=== PATIENT | female | born 1940 | race Caucasian/White ===

== ENCOUNTER 2016-06-06 09:13 | Outpatient (CLI) | payer MEDICARE, BC ==
[2016-06-06] MEDS ORDERED: BARIUM SULFATE 176 GM BOTTLE PO ONE (10:10)
== END 2016-06-06 09:14 | disposition home or self-care (01) ==
DX: K44.9 Diaphragmatic hernia without obstruction or gangrene (principal); K21.9 Gastro-esophageal reflux disease without esophagitis
CPT/HCPCS: 74247; A9270

== ENCOUNTER 2016-10-15 10:39 | Outpatient (CLI) | payer MEDICARE, BC | END 2016-10-15 10:40 | disposition home or self-care (01) | LOC: DI 10:39 | PROVIDERS: ATTEND Physician Assistant Medical | DX: Z12.31 Encounter for screening mammogram for malignant neoplasm of breast (principal) ==

== ENCOUNTER 2016-10-27 14:16 | Outpatient (CLI) | payer MEDICARE, BC ==
--- NOTE | 2016-10-27 18:08 | Mammography Report ---
DIGITAL DIAGNOSTIC BILATERAL MAMMOGRAM: 10/27/2016 CLINICAL INDICATION: Left breast pain at previous surgical site, history of left breast cancer statu s post lumpectomy and radiation therapy. COMPARISON: 09/2015, 09/2014, 08/2013, 04/2012, 04/2011, 04/2010, 10/2009, 03/2009. TECHNIQUE: Routine CC and MLO projections were obtained of the breasts. The breasts again demonstrate scattered fibroglandular densities bilaterally. Postoperative and post -treatment changes in the left breast, and post-biopsy changes in the right breast are stable. Coars e and punctate, typically benign calcifications are present. No suspicious masses, clustered microca lcifications, or regions of architectural distortion are identified. IMPRESSION: BENIGN FINDINGS. RECOMMENDATION: ROUTINE ANNUAL SCREENING UNLESS OTHERWISE CLINICALLY INDICATED. BIRADS CATEGORY: 2, BENIGN FINDINGS. STANDARD QUALIFYING STATEMENTS 1. This examination was reviewed with the aid of Computed-Aided Detection (CAD). 2. A negative or benign imaging report should not delay biopsy if clinically suspicious findings are present. Consider surgical consultation if warranted. More than 5% of cancers are not identified b y imaging. 3. Dense breasts may obscure an underlying neoplasm. JOB #: [id number] EXT JOB #:[id number]
== END 2016-10-27 14:17 | disposition home or self-care (01) ==
LOC: DI 14:16
PROVIDERS: ATTEND Physician Assistant Medical
DX: N64.4 Mastodynia (principal); Z85.3 Personal history of malignant neoplasm of breast
CPT/HCPCS: 77066

== ENCOUNTER 2016-11-17 13:33 | Outpatient (CLI) | payer MEDICARE, BC ==
--- NOTE | 2016-11-18 09:54 | DEXA Report ---
DEXA SCAN: 11/17/2016 CLINICAL INDICATION: Osteopenia. TECHNIQUE: Dual energy x-ray absorptiometry (DXA) was performed on a [employer] system. Regions measured are the AP spine, femoral neck, and, if needed, forearm. COMPARISON: None. In accordance with the International Society for Clinical Densitometry (ISCD) guidelines, data from previous exams may be reanalyzed using current recommendations and techniques. This is done to allow a more accurate basis for comparison with the current study. FINDINGS: The data for the lumbar spine is as follows: REGION BMD (g/cm/cm) T-SCORE Z-SCORE L1 1.047 -0.7 0.3 L2 1.228 0.2 1.2 L3 1.453 2.1 3.1 L4 1.182 -0.1 0.8 TOTAL 1.232 0.4 1.4 NOTE: All evaluable vertebrae are used for classification. The data for the hip is as follows: REGION BMD (g/cm/cm) T-SCORE Z-SCORE Neck 0.884 -1.1 0.3 TOTAL 0.831 -1.4 -0.2 NOTE: The femoral neck or total proximal femur, whichever is lowest, is used for classification. IMPRESSION: THE WHO CLASSIFICATION BASED ON THE INTERNATIONAL REFERENCE STANDARD IS OSTEOPENIA. THE FRACTURE RISK IS INCREASED. RECOMMENDATION: Patients with diagnosis of osteoporosis or osteopenia should have regular bone mineral density assessment. For those eligible for Medicare, routine testing is allowed once every 2 years. Testing frequency can be increased for patients who have rapidly progressing disease or for those who are receiving medical therapy to restore bone mass. COMMENT: World Health Organization (WHO) definitions for osteoporosis and osteopenia: NORMAL BMD: T-score at -1.0 or higher, fracture risk is low. OSTEOPENIA BMD: T-score between -1.0 and -2.5, fracture risk is increased. OSTEOPOROSIS BMD: T-score at -2.5 or lower, fracture risk high. National Osteoporosis Foundation recommends: 1. Obtain adequate dietary calcium (at least 1200 mg per day) and vitamin D (400 -800 international units per day). 2. Participate, as appropriate, in regular weightbearing and muscle- strengthening exercise. 3. Avoid tobacco use and reduce alcohol and caffeine intake. 4. For more detailed information see the website at www.NOF.org. MTDD
== END 2016-11-17 13:34 | disposition home or self-care (01) ==
LOC: DI 13:33
PROVIDERS: ATTEND Family Medicine
DX: M85.88 Other specified disorders of bone density and structure, other site (principal)
CPT/HCPCS: 77080

== ENCOUNTER 2017-07-26 08:00 | Outpatient (CLI) | payer MEDICARE, BC ==
[2017-07-26 13:00] LABS: BASOPHILS # (AUTO) 0.1 10^3/uL (0.0-0.1); BASOPHILS % (AUTO) 1.5 %; EOSINOPHILS # (AUTO) 0.1 10^3/uL (0.0-0.7); EOSINOPHILS % (AUTO) 1.9 %; HGB - HEMOGLOBIN 13.8 g/dL (12.0-16.0); LYMPHOCYTES # (AUTO) 1.5 10^3/uL (1.5-3.5); LYMPHOCYTES % (AUTO) 31.3 %; MEAN CORPUSCULAR HEMOGLOBIN 30.1 pg (27.0-31.0); MEAN CORPUSCULAR HGB CONC 33.2 g/dL (32.0-36.0); MEAN CORPUSCULAR VOLUME 90.5 fL (81.0-99.0); MEAN PLATELET VOLUME 9.9 fL (7.9-10.8); MONOCYTES # (AUTO) 0.3 10^3/uL (0.0-1.0); NEUTROPHILS # (AUTO) 2.8 10^3/uL (1.5-6.6); NEUTROPHILS % (AUTO) 58.3 %; PLT - PLATELET COUNT 199 10^3/uL (130-450); RED CELL DISTRIBUTION WIDTH 13.3 % (12.0-15.0); WHITE BLOOD COUNT 4.8 x10^3/uL (4.8-10.8)
[2017-07-26 13:10] LABS: ALBUMIN 3.7 g/dL (3.2-5.5); ALBUMIN/GLOBULIN RATIO 1.1 (1.0-2.2); ALKALINE PHOSPHATASE 51 IU/L (42-121); ALT ALANINE AMINOTRANSFERASE 16 IU/L (10-60); AST ASPARTATE AMINOTRANSFERASE 21 IU/L (10-42); BUN - BLOOD UREA NITROGEN 17 mg/dL (6-20); CALCIUM 8.8 mg/dL (8.5-10.3); CARBON DIOXIDE - CO2 29 mmol/L (21-32); CHLORIDE 103 mmol/L (101-111); CHOL/HDL RATIO 2.4 (<4.4); CHOLESTEROL 168 mg/dL; CREATININE 0.7 mg/dL (0.4-1.0); GFR - MDRD 81 (>89); GLUCOSE 95 mg/dL (70-100); HDL CHOLESTEROL 69 mg/dL; LDL CHOLESTEROL,CALCULATED 86 mg/dL; LDL/HDL RATIO 1.2 (<4.4); SODIUM 138 mmol/L (135-145); VLDL CHOLESTEROL 13 mg/dL
== END 2017-07-26 08:01 ==
LOC: LAB.WCP 08:00
PROVIDERS: ATTEND Family Medicine
DX: I10 Essential (primary) hypertension (principal)
CPT/HCPCS: 36415; 80053; 80061; 83721; 84443; 85025

== ENCOUNTER 2017-08-24 16:33 | Emergency (ER) | payer MEDICARE, BC ==
[2017-08-24] MEDS ORDERED: ACETAMINOPHEN 325 MG TABLET PO STA (17:09)
--- NOTE | 2017-08-24 17:11 | ED Physician Documentation ---
PD HPI UPPER EXT INJURY - Stated complaint Stated Complaint: GLF/ R SHOULDER/NECK/ HEAD PX - Chief complaint Chief Complaint: Ext Problem - History obtained from History obtained from: Patient, Family - History of Present Illness Location: Other (She had a trip and fall about an hour ago at home landing on a shredder, she injured the right side of her face and head and also the right shoulder and ribs. There is no loss of consciousness. No vomiting. 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 HEENT: Cataracts - Present Medications Home Medications: Ambulatory Orders Medication Instructions Recorded Confirmed Atenolol [Tenormin] 25 mg PO DAILY 11/01/12 11/04/14 Calcitonin,[place],Synthetic 3.7 ml NS DAILY 11/01/12 11/04/14 [Calcitonin-[place]] Calcium Citrate/Vitamin D3 1 each PO BID 11/01/12 11/04/14 [Citracal + D Maximum Caplet] Cholecalciferol (Vitamin D3) 2,000 unit PO DAILY 11/01/12 11/04/14 [Vitamin D] Latanoprost 0.005% Ophth Drops 1 drops OPTH QPM 11/01/12 11/04/14 [Xalatan] Lovastatin [Mevacor] 20 mg PO DAILY 11/01/12 11/04/14 Acetaminophen 325 mg PO Q6H PRN 10/22/13 11/04/14 Aspirin [Aspir 81] 81 mg PO DAILY 10/22/13 11/04/14 Famotidine 20 mg PO BID 10/22/13 11/04/14 - Allergies Allergies/Adverse Reactions: Allergies Allergy/AdvReac Type Severity Reaction Status Date / Time hydrocodone [Hydrocodone] Allergy Severe Rash Verified 08/24/17 16:57 Tetanus Vaccines and Toxoid Allergy Severe Edema Verified 08/24/17 16:57 [Tetanus Vaccines & Toxoid] - Social History Does the pt smoke?: No Smoking Status: Never smoker PD ED PE NORMAL - Vitals Vital signs reviewed: Yes - General General: Alert and oriented X 3, No acute distress - HEENT HEENT: PERRL, EOMI, Other (She is tender over the right upper mandible with TMJ clicking, not sure the acuity of that. Full range of motion of the jaw though.) - Neck Neck: Supple, no meningeal sign, No bony TTP - Cardiac Cardiac: RRR, No murmur - Respiratory Respiratory: No respiratory distress, Clear bilaterally, Other (She is tender over the right upper ribs in the mid axillary line and to the right upper humerus but good range of motion of the shoulder.) - Abdomen Abdomen: Non tender - Back Back: No spinal TTP - Neuro Neuro: Alert and oriented X 3, culture manager 2-12 intact, Normal speech Eye Opening: Spontaneous Motor: Obeys Commands Verbal: Oriented GCS Score: 15 Results - Vitals Vitals: Vital Signs - 24 hr 08/24/17 08/24/17 16:54 18:21 Temperature 36.2 C L 36.5 C Heart Rate 67 81 Respiratory 14 18 Rate Blood Pressure 149/88 H 148/78 H O2 Saturation 99 96 Oxygen O2 Source Room air - Rads (name of study) XR R humerus and ribs Radiology: EMP read contemporaneously (NAD) Ct Face/head Radiology: EMP read contemporaneously (NAD) PD MEDICAL DECISION MAKING - ED course ED course: The patient and family were counseled as to the diagnosis and need for follow- up. I counseled the patient with regard to signs and symptoms that would necessitate an urgent reevaluation in the emergency department. They understand they are welcome to return at any time if worse or if not improving as expected. This document was made in part using voice recognition software. While efforts are made to proofread this documents, sound alike and grammatical errors may occur. - Sepsis Event Vital Signs: Vital Signs - 24 hr 08/24/17 08/24/17 16:54 18:21 Temperature 36.2 C L 36.5 C Heart Rate 67 81 Respiratory 14 18 Rate Blood Pressure 149/88 H 148/78 H O2 Saturation 99 96 Oxygen O2 Source Room air Departure - Departure Disposition: 01 Home, Self Care Clinical Impression: Head injury Qualifiers: Encounter type: initial encounter Qualified Code(s): S09.90XA - Unspecified injury of head, initial encounter Facial contusion Qualifiers: Encounter type: initial encounter Qualified Code(s): S00.83XA - Contusion of other part of head, initial encounter Contusion of right shoulder Qualifiers: Encounter type: initial encounter Qualified Code(s): S40.011A - Contusion of right shoulder, initial encounter Chest wall contusion Qualifiers: Encounter type: initial encounter Laterality: right Qualified Code(s): S20.211A - Contusion of right front wall of thorax, initial encounter Condition: Good Record reviewed to determine appropriate education?: Yes Instructions: ED Contusion Chest Wall Comments: Tylenol as needed for pain, return if worse or new symptoms develop. Follow-up with your doctor next week for persistent symptoms. Your blood pressure was elevated today on check into the emergency department. This does not mean that you have hypertension, it is a common phenomenon to come to the emergency department and have elevated blood pressure. I recommend that you see your primary care physician within the week to have it rechecked when you are feeling better. Discharge Date/Time: 08/24/17 18:22
--- NOTE | 2017-08-24 17:47 | CT Report ---
Procedure Date: 08/24/2017 Accession Number: [id number] / [id number] Procedure: CT - Head W/O CPT Code: FULL RESULT: EXAM: CT HEAD EXAM DATE: 08/24/2017 05:30 PM. CLINICAL HISTORY: Fall, head/face/shoulder and rib inj. COMPARISON: None. TECHNIQUE: Multiaxial CT images were obtained from the foramen magnum to the vertex. Reformats: Coronal. IV contrast: None. In accordance with CT protocol optimization, one or more of the following dose reduction techniques were utilized for this exam: automated exposure control, adjustment of mA and/or KV based on patient size, or use of iterative reconstructive technique. FINDINGS: Parenchyma: Patchy periventricular and subcortical low-density white matter changes. No evidence of acute infarction or hemorrhage. Extraaxial Spaces: Normal for age. No subdural or epidural collections identified. Ventricles: Normal in size and position. Sinuses and Orbits: Imaged paranasal sinuses, orbits, and mastoids show no significant abnormality. Bones: No evidence of fracture or calvarial defect. Other: None. IMPRESSION: No acute intracranial abnormality. Low-density white matter changes compatible with chronic small vessel ischemic disease. RADIA
--- NOTE | 2017-08-24 17:53 | CT Report ---
Procedure Date: 08/24/2017 Accession Number: [id number] / [id number] Procedure: CT - Facial Bones W/O CPT Code: FULL RESULT: EXAM: CT MAXILLOFACIAL WITHOUT CONTRAST EXAM DATE: 08/24/2017 05:30 PM. CLINICAL HISTORY: Fall, head/face/shoulder and rib inj. COMPARISONS: None. TECHNIQUE: Thin-section axial images were acquired of the face without contrast. Post-processing: Coronal and sagittal reformats. Other: None. In accordance with CT protocol optimization, one or more of the following dose reduction techniques were utilized for this exam: automated exposure control, adjustment of mA and/or KV based on patient size, or use of iterative reconstructive technique. FINDINGS: Soft Tissue: The infratemporal fossa and parapharyngeal spaces are unremarkable. Orbits: Symmetric and unremarkable. Bones: No fracture or bone lesion. Temporomandibular Joints: The temporomandibular joints are symmetric and normally located. Sinuses: Minimal left maxillary sinus mucosal thickening. Other: None. IMPRESSION: No facial bone fracture. RADIA
--- NOTE | 2017-08-24 18:01 | XRAY Report ---
Procedure Date: 08/24/2017 Accession Number: [id number] / [id number] Procedure: XR - Humerus RT CPT Code: FULL RESULT: EXAM: RIGHT HUMERUS RADIOGRAPHY EXAM DATE: 08/24/2017 05:49 PM. CLINICAL HISTORY: Fall, pain COMPARISON: None. TECHNIQUE: 2 views. FINDINGS: Bones: No acute fracture or focal osseous destruction. Joints: Mild degenerative changes at the shoulder and elbow. No dislocation identified. Soft Tissues: No radiopaque foreign body. IMPRESSION: No acute fracture or dislocation identified. RADIA
--- NOTE | 2017-08-24 18:03 | XRAY Report ---
Procedure Date: 08/24/2017 Accession Number: [id number] / [id number] Procedure: XR - Ribs w/PA Chest RT CPT Code: FULL RESULT: EXAM: RIGHT RIB RADIOGRAPHY EXAM DATE: 08/24/2017 05:49 PM. CLINICAL HISTORY: Fall, head/face/shoulder and rib inj. COMPARISON: Chest x-ray 07/14/2008. TECHNIQUE: 1 view of the chest and 2 views of the ribs. FINDINGS: Bones: No definite acute right-sided rib fracture is visualized. Lungs: No focal lung consolidation. Mild elevation of the right hemidiaphragm again noted. Mildly low lung volumes. No large effusion. No pneumothorax. Mediastinum: Cardiac silhouette size appears stable. Mild vascular calcification. Other: Surgical clips again noted overlying the axillary regions and left chest wall. IMPRESSION: No definite acute right-sided rib fracture is visualized. RADIA
[2017-08-24 18:22] VITALS: BP 148/78
== END 2017-08-24 18:22 | disposition home or self-care (01) ==
LOC: ED 16:33
DX: S09.90XA Unspecified injury of head, initial encounter (principal); S00.83XA Contusion of other part of head, initial encounter; S20.211A Contusion of right front wall of thorax, initial encounter; S40.011A Contusion of right shoulder, initial encounter; W01.198A Fall on same level from slipping, tripping and stumbling with subsequent striking against other object, initial encounter; Y92.009 Unspecified place in unspecified non-institutional (private) residence as the place of occurrence of the external cause; I10 Essential (primary) hypertension; K21.9 Gastro-esophageal reflux disease without esophagitis; M19.90 Unspecified osteoarthritis, unspecified site; Z79.82 Long term (current) use of aspirin
CPT/HCPCS: 70450; 70486; 71101; 73060; 99283; A9270

== ENCOUNTER 2017-09-11 16:53 | Outpatient (CLI) | payer MEDICARE, BC ==
--- NOTE | 2017-09-11 17:49 | XRAY Report ---
Procedure Date: 09/11/2017 Accession Number: [id number] / [id number] Procedure: XR - Thoracic Spine 3 View CPT Code: FULL RESULT: EXAM: THORACIC SPINE RADIOGRAPHY EXAM DATE: 09/11/2017 05:31 PM. CLINICAL HISTORY: Pain after a fall today. COMPARISON: Two-view chest 07/14/2008. TECHNIQUE: 3 views. FINDINGS: Alignment: Marked dextroscoliosis of the lumbar spine. Mild kyphosis of the thoracic spine. Bones: Old very slight wedging of the vertebral bodies throughout the thoracic spine. No acute trabecular cortical disruption. Disks: Multilevel mild degenerative changes. Soft Tissues: Remote left breast surgery. Visualized lungs are clear. Heart is of normal caliber. IMPRESSION: No acute bony abnormality. RADIA
--- NOTE | 2017-09-11 17:51 | XRAY Report ---
Procedure Date: 09/11/2017 Accession Number: [id number] / [id number] Procedure: XR - Lumbar Spine 2 View CPT Code: FULL RESULT: EXAM: LUMBOSACRAL SPINE RADIOGRAPHY EXAM DATE: 09/11/2017 05:31 PM. CLINICAL HISTORY: Pain after fall today. COMPARISONS: 08/24/2010. TECHNIQUE: 3 views. FINDINGS: Alignment: 20-degree dextroscoliosis centered at L2. 8 mm degenerative anterior subluxation L4 on L5. Bones: Five [id number]-dbeplmb lumbar vertebral bodies are present. No fractures or bone lesions. Disks: Marked degenerative disk disease L5-S1. Facets: Multilevel degenerative changes, greatest at L4-L5 and L5-S1. Sacroiliac Joints: Unremarkable. Soft Tissues: Stable 5.6 cm calcification right upper quadrant. IMPRESSION: No acute bony abnormality. RADIA
--- NOTE | 2017-09-11 18:13 | CT Report ---
Procedure Date: 09/11/2017 Accession Number: [id number] / [id number] Procedure: CT - Head W/O CPT Code: FULL RESULT: EXAM: CT HEAD EXAM DATE: 09/11/2017 05:42 PM. CLINICAL HISTORY: Fall backwards at 2 PM today. Posterior head and neck trauma. Pain. COMPARISON: 08/24/2017. TECHNIQUE: Multiaxial CT images were obtained from the foramen magnum to the vertex. Reformats: Coronal. IV contrast: None. In accordance with CT protocol optimization, one or more of the following dose reduction techniques were utilized for this exam: automated exposure control, adjustment of mA and/or KV based on patient size, or use of iterative reconstructive technique. FINDINGS: Parenchyma: No intraparenchymal hemorrhage. No evidence of mass, midline shift, or CT findings of acute infarction. Fajardo-white differentiation is distinct. Diffuse chronic microangiopathic white matter changes are evident. Extraaxial Spaces: Normal for age. No subdural or epidural collections identified. Ventricles: The ventricles and cortical sulci are enlarged, consistent with age-related tissue loss. Sinuses and orbits: Imaged paranasal sinuses, orbits, and mastoids show no significant abnormality. Bones: No evidence of fracture or calvarial defect. Other: None. IMPRESSION: Generalized age-related cortical atrophic changes without evidence of acute intracranial abnormality. RADIA
--- NOTE | 2017-09-11 18:36 | CT Report ---
Procedure Date: 09/11/2017 Accession Number: [id number] / [id number] Procedure: CT - Cervical Spine W/O CPT Code: FULL RESULT: EXAM: CT CERVICAL SPINE WITHOUT CONTRAST DATE: 09/11/2017 05:58 PM. HISTORY: Pain post injury after a fall. COMPARISONS: None. TECHNIQUE: Thin-section axial images were acquired of the cervical spine without contrast. Post-processing: Coronal and sagittal reformats. Other: None. In accordance with CT protocol optimization, one or more of the following dose reduction techniques were utilized for this exam: automated exposure control, adjustment of mA and/or KV based on patient size, or use of iterative reconstructive technique. FINDINGS: Alignment: 7-8 degrees have shallow broad-based rightward convex asymmetric cervical curvature. Slight degenerative C7 on T1 anterolisthesis. Bones: No acute fracture. Vertebral body heights are maintained. Interspace Levels/Facets: C1-C2: Mild to moderate chronic hypertrophic degenerative changes around the odontoid process. Mild bilateral facet arthropathy. C2-C3: Mild facet arthropathy. C3-C4: Minimal degenerative disk disease. Moderate facet arthropathy. C4-C5: Mild degenerative disk disease. Moderate left facet arthropathy. Shallow midline posterior disk protrusion with osteophyte. Minimal to mild bilateral bony foraminal stenosis. Minimal to mild central stenosis. C5-C6: Minimal to mild degenerative disk disease. Mild facet arthropathy. The osseous contours of the central canal and right foramen are maintained. Mild to moderate left bony foraminal stenosis. C6-C7: Moderate degenerative disk disease. Anterior marginal spurring. Posterior marginal spurring and bilateral uncinate process spurring and mild facet arthropathy. Mild to moderate stenosis of the neural foramina bilaterally. The osseous contours of the central canal are maintained. C7-T1: Mild right and moderate left facet arthropathy. Intact disk space. No significant stenosis. Musculature: No acute abnormality or significant asymmetry. No focal prevertebral soft tissue thickening. Other: Multiple punctate calcifications are present where there is unusual soft tissue fullness at the tongue base protruding posteriorly into the vallecula. This soft tissue prominence measures nearly 1 cm AP in the midline. IMPRESSION: 1. No evidence for acute fracture or dislocation. 2. Chronic-appearing multilevel degenerative cervical spinal spondylosis, most prominent at C4-C5 through C6-C7. 3. Nonspecific masslike soft tissue fullness at the tongue base with intermixed punctate calcifications which suggest a recurrent or chronic inflammatory process, soft tissue fullness may represent lingual tonsil hypertrophy. Tumor is a statistically less likely differential consideration. Findings were discussed by telephone with the ordering provider Loly Daniels MD at 6:32 PM 09/11/2017. RADIA
== END 2017-09-11 16:54 | disposition home or self-care (01) ==
LOC: DI 16:53
PROVIDERS: ATTEND Family Medicine
DX: S09.90XA Unspecified injury of head, initial encounter (principal); M47.892 Other spondylosis, cervical region; M50.31 Other cervical disc degeneration, high cervical region; K14.9 Disease of tongue, unspecified; M48.02 Spinal stenosis, cervical region; M51.34 Other intervertebral disc degeneration, thoracic region; R29.6 Repeated falls
CPT/HCPCS: 70450; 72072; 72100; 72125

== ENCOUNTER 2017-11-28 13:06 | Outpatient (CLI) | payer MEDICARE, BC ==
--- NOTE | 2017-11-29 09:23 | Mammography Report ---
Reason: SCREENING MAMMO Procedure Date: 11/28/2017 Accession Number: [id number] / [id number] Procedure: [facility] - Screening Mammo Dig Bilat CPT Code: FULL RESULT: EXAM: Screening Mammo Dig Bilat DATE: 11/28/2017 1:51 PM CLINICAL HISTORY: 77-year-old female with personal history of left breast cancer status post biopsy, lumpectomy and radiation therapy. TECHNIQUE: Bilateral CC, left laterally exaggerated CC, bilateral MLO views and a right CV view were obtained. COMPARISON: None FINDINGS: The breasts demonstrate scattered fibroglandular densities bilaterally. A biopsy marker is seen in the right breast. Post treatment changes and postsurgical changes are seen in the left breast. Visualization of the left breast in both the CC and MLO projection are inadequate and further views need to be obtained for sufficient visualization of breast tissue. No suspicious masses, clustered microcalcifications, or regions of architectural distortion are identified. IMPRESSION: Incomplete examination RECOMMENDATION: Additional evaluation as above. BIRADS CATEGORY 0: Incomplete examination STANDARD QUALIFYING STATEMENTS: 1. This examination was reviewed without the aid of Computer-Aided Detection (CAD). 2. A negative or benign imaging report should not delay biopsy if clinically suspicious findings are present. Consider surgical consultation if warrented. More than 5% of cancers are not identified by imaging. 3. Dense breasts may obscure an underlying neoplasm.
== END 2017-11-28 13:07 | disposition home or self-care (01) ==
LOC: DI 13:06
PROVIDERS: ATTEND Family Medicine
DX: Z12.31 Encounter for screening mammogram for malignant neoplasm of breast (principal); R92.2 Inconclusive mammogram; Z85.3 Personal history of malignant neoplasm of breast
CPT/HCPCS: 77067

== ENCOUNTER 2017-12-18 09:13 | Outpatient (CLI) | payer MEDICARE, BC ==
--- NOTE | 2018-01-02 14:27 | Mammography Report ---
Reason: TECH REPEAT - NO CHARGE - ROUTINE MAMMO Procedure Date: 12/18/2017 Accession Number: [id number] / [id number] Procedure: [facility] - No Charge Procedure CPT Code: FULL RESULT: FINDINGS: IMPRESSION: For results, please reference the 11/28/2017 addended screening mammogram report.
--- NOTE | 2018-01-02 14:28 | Mammography Report ---
Reason: TECH REPEAT - NO CHARGE - ROUTINE MAMMO Procedure Date: 12/18/2017 Accession Number: [id number] / [id number] Procedure: [facility] - Screening Mammo Dig Bilat CPT Code: FULL RESULT: FINDINGS: IMPRESSION: For results, please reference the 11/28/2017 addended screening mammogram report.
== END 2017-12-18 09:14 | disposition home or self-care (01) ==
LOC: DI 09:13
PROVIDERS: ATTEND Family Medicine
DX: Z12.31 Encounter for screening mammogram for malignant neoplasm of breast (principal); Z85.3 Personal history of malignant neoplasm of breast
CPT/HCPCS: 77067

== ENCOUNTER 2018-07-16 10:56 | Outpatient (CLI) | payer MEDICARE, BC ==
[2018-07-16 11:18] LABS: BASOPHILS # (AUTO) 0.1 10^3/uL (0.0-0.1); BASOPHILS % (AUTO) 1.3 %; EOSINOPHILS # (AUTO) 0.1 10^3/uL (0.0-0.7); EOSINOPHILS % (AUTO) 1.9 %; HGB - HEMOGLOBIN 13.5 g/dL (12.0-16.0); LYMPHOCYTES # (AUTO) 1.5 10^3/uL (1.5-3.5); LYMPHOCYTES % (AUTO) 30.1 %; MEAN CORPUSCULAR HEMOGLOBIN 29.9 pg (27.0-31.0); MEAN CORPUSCULAR HGB CONC 32.8 g/dL (32.0-36.0); MEAN CORPUSCULAR VOLUME 91.2 fL (81.0-99.0); MEAN PLATELET VOLUME 8.8 fL (7.9-10.8); MONOCYTES # (AUTO) 0.3 10^3/uL (0.0-1.0); MONOCYTES % (AUTO) 7.1 %; NEUTROPHILS # (AUTO) 2.9 10^3/uL (1.5-6.6); NEUTROPHILS % (AUTO) 59.6 %; PLT - PLATELET COUNT 209 10^3/uL (130-450); RED BLOOD COUNT 4.52 10^6/uL (4.20-5.40); RED CELL DISTRIBUTION WIDTH 13.1 % (12.0-15.0); WHITE BLOOD COUNT 4.9 x10^3/uL (4.8-10.8)
[2018-07-16 11:30] LABS: ALBUMIN 3.8 g/dL (3.2-5.5); ALBUMIN/GLOBULIN RATIO 1.2 (1.0-2.2); BILIRUBIN,TOTAL 0.8 mg/dL (0.2-1.0); CREATININE 0.6 mg/dL (0.4-1.0); TOTAL PROTEIN 7.1 g/dL (6.7-8.2)
== END 2018-07-16 10:57 | disposition home or self-care (01) ==
LOC: LAB 10:56
PROVIDERS: ATTEND Internal Medicine Gastroenterology
DX: I10 Essential (primary) hypertension (principal)
CPT/HCPCS: 36415; 80053; 85025

== ENCOUNTER 2018-10-09 | Day surgery (SDC) | payer MEDICARE, BC | END 2018-10-09 06:16 | disposition home or self-care (01) | PROC: 0DBN8ZZ Excision of Sigmoid Colon, Via Natural or Artificial Opening Endoscopic (ICD-10-PCS; principal; 2018-10-09) | PROC: 0DB68ZZ Excision of Stomach, Via Natural or Artificial Opening Endoscopic (ICD-10-PCS; 2018-10-09) | DX: Z12.11 Encounter for screening for malignant neoplasm of colon (principal); D12.5 Benign neoplasm of sigmoid colon; K31.7 Polyp of stomach and duodenum; I10 Essential (primary) hypertension; K21.9 Gastro-esophageal reflux disease without esophagitis; M19.90 Unspecified osteoarthritis, unspecified site; Z85.3 Personal history of malignant neoplasm of breast; K63.5 Polyp of colon | CPT/HCPCS: 43239; 45380; A9270; J3010; J7120 ==

== ENCOUNTER 2018-11-25 10:46 | Emergency (ER) | payer MEDICARE, BC ==
[2018-11-25 11:05] VITALS: BP 146/56
--- NOTE | 2018-11-25 11:17 | ED Physician Documentation ---
PD HPI OPHTHO - Stated complaint Stated Complaint: RT EYE BLURRY - Chief complaint Chief Complaint: Neuro - History obtained from History obtained from: Patient - History of Present Illness Timing - onset: How many hours ago (1), Today Timing - duration: Minutes (about 10 minutes - onset while driving of right peripheral/lateral flashing lights and blurred vision, just lateral aspect, with the main/central vision being normal. It lasted about 10 minutes then went away and she is feeling fine after.) Timing - details: Abrupt onset, Now resolved Location: Right Quality / character: No: Itching, Burning, Aching Associated symptoms: Decreased vision (just the flashing lights/scotomata lateral right eye). No: Redness, Swelling, FB sensation, Photophobia, Loss of vision Contributing factors: No: FB, Blunt trauma, Wears contacts Similar symptoms before: Has not had sx before Recently seen: Not recently seen Review of Systems Constitutional: denies: Fever, Chills, Myalgias Eyes: denies: Loss of vision, Photophobia, Discharge, Irritation Nose: denies: Rhinorrhea / runny nose, Congestion Throat: denies: Sore throat Respiratory: denies: Cough Skin: denies: Rash, Lesions Neurologic: denies: Focal weakness, Numbness, Confused, Altered mental status, Headache, Head injury PD PAST MEDICAL HISTORY - Past Medical History Cardiovascular: Hypertension, High cholesterol Respiratory: None Endocrine/Autoimmune: None GI: GERD : None HEENT: Glaucoma Psych: None, Claustrophobia Musculoskeletal: Osteoarthritis Derm: None - Past Surgical History Past Surgical History: Yes 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, 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 HEENT: Cataracts - Present Medications Home Medications: Ambulatory Orders Medication Instructions Recorded Confirmed Atenolol [Tenormin] 25 mg PO DAILY 11/01/12 11/04/14 Calcitonin,[place],Synthetic 3.7 ml NS DAILY 11/01/12 11/04/14 [Calcitonin-[place]] Calcium Citrate/Vitamin D3 1 each PO BID 11/01/12 11/04/14 [Citracal + D Maximum Caplet] Cholecalciferol (Vitamin D3) 2,000 unit PO DAILY 11/01/12 11/04/14 [Vitamin D] Latanoprost 0.005% Ophth Drops 1 drops OPTH QPM 11/01/12 11/04/14 [Xalatan] Lovastatin [Mevacor] 20 mg PO DAILY 11/01/12 11/04/14 Acetaminophen 325 mg PO Q6H PRN 10/22/13 11/04/14 Aspirin [Aspir 81] 81 mg PO DAILY 10/22/13 11/04/14 Famotidine 20 mg PO BID 10/22/13 11/04/14 - Allergies Allergies/Adverse Reactions: Allergies Allergy/AdvReac Type Severity Reaction Status Date / Time hydrocodone [Hydrocodone] Allergy Severe Rash Verified 08/24/17 16:57 Tetanus Vaccines and Toxoid Allergy Severe Edema Verified 08/24/17 16:57 [Tetanus Vaccines & Toxoid] latex Allergy Rash Verified 10/09/18 07:17 - Social History Does the pt smoke?: No Smoking Status: Never smoker Does the pt drink ETOH?: Yes Does the pt have substance abuse?: No - Immunizations Immunizations are current?: Yes - POLST Patient has POLST: No PD ED PE NORMAL - Vitals Vital signs reviewed: Yes - General General: Alert and oriented X 3, No acute distress, Well developed/nourished - HEENT HEENT: PERRL, EOMI, Pharynx benign - Neck Neck: Supple, no meningeal sign, No bony TTP, No adenopathy - Cardiac Cardiac: RRR, No murmur - Respiratory Respiratory: Clear bilaterally - Abdomen Abdomen: Soft, Non tender - Derm Derm: Normal color, Warm and dry - Neuro Neuro: Alert and oriented X 3, No motor deficit, Normal speech PD ED PE EXPANDED - Eyes Eyes: EOMI, Right eye, Left eye, Anterior chambers clear, Normal fundi, Temp arteries nontender, Other (IOP 15.). No: Corneal FB, Retinal hemorrhage Results - Vitals Vitals: Vital Signs - 24 hr 11/25/18 10:54 Temperature 36.6 C Heart Rate 77 Respiratory 18 Rate Blood Pressure 146/56 H O2 Saturation 97 Oxygen O2 Source Room air PD MEDICAL DECISION MAKING - ED course Complexity details: considered differential (ocular migraine vs threatened d etachment. Eye appears normal now. Seeing Dr. Adler tomorrow. 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 Follow-up with Dr. Adler tomorrow in the office. Rest today without any heavy lifting or vigorous activity. Return if symptoms recur or persist. Discharge Date/Time: 11/25/18 11:54
== END 2018-11-25 11:54 | disposition home or self-care (01) ==
LOC: ED 10:46
DX: H53.431 Sector or arcuate defects, right eye (principal); I10 Essential (primary) hypertension; Z79.82 Long term (current) use of aspirin
CPT/HCPCS: 99282

== ENCOUNTER 2019-01-11 15:19 | Outpatient (CLI) | payer MEDICARE, BC ==
--- NOTE | 2019-01-14 09:12 | Mammography Report ---
Reason: ANNUAL SCREENING Procedure Date: 01/11/2019 Accession Number: [id number] / [id number] Procedure: [facility] - Screening Mammo Dig Bilat CPT Code: Final Report FULL RESULT: EXAM: Screening Mammo Dig Bilat DATE: 01/11/2019 3:50 PM CLINICAL HISTORY: Screening encounter. Personal history of left breast cancer status post lumpectomy. History of benign right breast biopsy. TECHNIQUE: (B) - Bilateral CC and MLO views were obtained. COMPARISON: 12/18/2017 through 04/06/2009. PARENCHYMAL PATTERN: (A) - The breast(s) demonstrate(s) scattered fibroglandular densities. FINDINGS: Postlumpectomy changes in the left breast are redemonstrated, typically benign. A biopsy clip is seen in the right breast. There are no suspicious masses, calcifications, or areas of distortion. IMPRESSION: Benign findings. BI-RADS category 2. RECOMMENDATION: (ANNUAL) - Recommend routine annual screening mammography. BI-RADS CATEGORY: (2) - Benign Findings. STANDARD QUALIFYING STATEMENTS: 1. This examination was not reviewed with the aid of Computer-Aided Detection (CAD). 2. A negative or benign imaging report should not preclude biopsy if clinically suspicious findings are present. 3. Dense breasts may obscure an underlying neoplasm. 4. This examination was reviewed without the aid of 3D breast imaging (tomosynthesis).
== END 2019-01-11 15:20 | disposition home or self-care (01) ==
LOC: DI 15:19
DX: Z12.31 Encounter for screening mammogram for malignant neoplasm of breast (principal); Z85.3 Personal history of malignant neoplasm of breast
CPT/HCPCS: 77067

== ENCOUNTER 2019-03-15 16:32 | Emergency (ER) | payer MEDICARE, BC ==
[2019-03-15 17:09] LABS: BASOPHILS # (AUTO) 0.1 10^3/uL (0.0-0.1); BASOPHILS % (AUTO) 0.8 %; EOSINOPHILS # (AUTO) 0.1 10^3/uL (0.0-0.7); EOSINOPHILS % (AUTO) 1.7 %; HGB - HEMOGLOBIN 13.7 g/dL (12.0-16.0); LYMPHOCYTES # (AUTO) 1.8 10^3/uL (1.5-3.5); LYMPHOCYTES % (AUTO) 30.9 %; MEAN CORPUSCULAR HEMOGLOBIN 30.6 pg (27.0-31.0); MEAN CORPUSCULAR HGB CONC 32.2 g/dL (32.0-36.0); MEAN CORPUSCULAR VOLUME 95.1 fL (81.0-99.0); MEAN PLATELET VOLUME 10.6 fL (7.9-10.8); MONOCYTES # (AUTO) 0.5 10^3/uL (0.0-1.0); MONOCYTES % (AUTO) 7.8 %; NEUTROPHILS # (AUTO) 3.5 10^3/uL (1.5-6.6); NEUTROPHILS % (AUTO) 58.5 %; PLT - PLATELET COUNT 246 10^3/uL (130-450); RED BLOOD COUNT 4.47 10^6/uL (4.20-5.40); RED CELL DISTRIBUTION WIDTH 12.3 % (12.0-15.0); WHITE BLOOD COUNT 5.9 x10^3/uL (4.8-10.8)
--- NOTE | 2019-03-15 17:22 | ED Physician Documentation ---
History of Present Illness - Stated complaint Stated Complaint: SOA - Chief complaint Chief Complaint: Cardiac - History obtained from History obtained from: Patient - History of Present Illness Timing: How many weeks ago (1) Pain level max: 0 Pain level now: 0 - Additonal information Additional information: Patient states that she has a history of palpitations. She has noticed that the palpitations have become more frequent over the past week. Nothing makes them better or worse. She does not know her medications at home. No chest pain. Occasionally feels short of breath with the palpitations. Review of Systems Ten Systems: 10 systems reviewed and negative Constitutional: denies: Fever, Chills Ears: denies: Ear pain Nose: denies: Rhinorrhea / runny nose, Congestion Cardiac: denies: Chest pain / pressure GI: denies: Vomiting Skin: denies: Rash Musculoskeletal: denies: Neck pain, Back pain Neurologic: denies: Headache PD PAST MEDICAL HISTORY - Past Medical History Cardiovascular: Hypertension, High cholesterol Respiratory: None Endocrine/Autoimmune: None GI: GERD : None HEENT: Glaucoma Psych: None, Claustrophobia Musculoskeletal: Osteoarthritis Derm: None - Past Surgical History Past Surgical History: Yes 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, 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 HEENT: Cataracts - Present Medications Home Medications: Ambulatory Orders Medication Instructions Recorded Confirmed Calcitonin,[place],Synthetic 3.7 ml NS DAILY 11/01/12 11/04/14 [Calcitonin-[place]] Calcium Citrate/Vitamin D3 1 each PO BID 11/01/12 11/04/14 [Citracal + D Maximum Caplet] Cholecalciferol (Vitamin D3) 2,000 unit PO DAILY 11/01/12 11/04/14 [Vitamin D] Latanoprost 0.005% Ophth Drops 1 drops OPTH QPM 11/01/12 11/04/14 [Xalatan] Lovastatin [Mevacor] 20 mg PO DAILY 11/01/12 11/04/14 atenoloL [Tenormin] 25 mg PO DAILY 11/01/12 11/04/14 Acetaminophen 325 mg PO Q6H PRN 10/22/13 11/04/14 Aspirin [Aspir 81] 81 mg PO DAILY 10/22/13 11/04/14 Famotidine 20 mg PO BID 10/22/13 11/04/14 - Allergies Allergies/Adverse Reactions: Allergies Allergy/AdvReac Type Severity Reaction Status Date / Time hydrocodone [Hydrocodone] Allergy Severe Rash Verified 03/15/19 16:38 Tetanus Vaccines and Toxoid Allergy Severe Edema Verified 03/15/19 16:38 [Tetanus Vaccines & Toxoid] acetaminophen [From Endocet] Allergy Unknown Verified 03/15/19 16:38 latex Allergy Rash Verified 03/15/19 16:38 oxycodone [From Endocet] Allergy Unknown Verified 03/15/19 16:38 - Social History Does the pt smoke?: No Smoking Status: Never smoker Does the pt drink ETOH?: Yes Does the pt have substance abuse?: No - Immunizations Immunizations are current?: Yes - POLST Patient has POLST: No PD ED PE NORMAL - Vitals Vital signs reviewed: Yes - General General: Alert and oriented X 3, No acute distress - HEENT HEENT: Moist mucous membranes - Neck Neck: Supple, no meningeal sign - Cardiac Cardiac: RRR, No murmur, Strong equal pulses - Respiratory Respiratory: No respiratory distress, Clear bilaterally - Abdomen Abdomen: Soft, Non tender, Non distended - Derm Derm: Warm and dry - Extremities Extremities: No edema - Neuro Neuro: Alert and oriented X 3 Results - Vitals Vitals: Vital Signs - 24 hr 03/15/19 03/15/19 03/15/19 16:35 17:23 18:24 Temperature 36.5 C 36.4 C L Heart Rate 58 L 55 L 55 L Respiratory 16 17 18 Rate Blood Pressure 186/64 H 139/61 H 135/55 H O2 Saturation 99 98 96 03/15/19 19:44 Temperature 36.9 C Heart Rate 58 L Respiratory 16 Rate Blood Pressure 129/63 O2 Saturation 96 Oxygen O2 Source Room air - EKG (time done) 1643 Rate: Rate (enter#) (54) Rhythm: NSR [place]: Normal Intervals: Normal MA QRS: LVH Ischemia: Non specific changes Compare to prior EKG: Old EKG unavailable - Labs Labs: Laboratory Tests 03/15/19 03/15/19 03/15/19 17:00 17:00 17:00 WBC 5.9 RBC 4.47 Hgb 13.7 Hct 42.5 MCV 95.1 MCH 30.6 MCHC 32.2 RDW 12.3 Plt Count 246 MPV 10.6 Neut # (Auto) 3.5 Lymph # (Auto) 1.8 [place] # (Auto) 0.5 Eos # (Auto) 0.1 Baso # (Auto) 0.1 Absolute Nucleated RBC 0.00 Nucleated RBC % 0.0 Sodium 138 Potassium 3.7 Chloride 103 Carbon Dioxide 29 Anion Gap 6.0 BUN 21 H Creatinine 0.7 Estimated GFR (MDRD) 81 L Glucose 95 Calcium 9.0 Phosphorus Magnesium Total Bilirubin 0.9 AST 18 ALT 15 Alkaline Phosphatase 49 Troponin I High Sens 2.7 Total Protein 7.1 Albumin 4.0 Globulin 3.1 Albumin/Globulin Ratio 1.3 Lipase 52 H 03/15/19 17:00 WBC RBC Hgb Hct MCV MCH MCHC RDW Plt Count MPV Neut # (Auto) Lymph # (Auto) [place] # (Auto) Eos # (Auto) Baso # (Auto) Absolute Nucleated RBC Nucleated RBC % Sodium Potassium Chloride Carbon Dioxide Anion Gap BUN Creatinine Estimated GFR (MDRD) Glucose Calcium Phosphorus 4.1 Magnesium 2.2 Total Bilirubin AST ALT Alkaline Phosphatase Troponin I High Sens Total Protein Albumin Globulin Albumin/Globulin Ratio Lipase - Rads (name of study) cxr Radiology: Prelim report reviewed, EMP read contemporaneously, See rad report (No acute radiographic pulmonary abnormalities. ) PD MEDICAL DECISION MAKING - ED course Complexity details: reviewed results, re-evaluated patient, considered differential, d/w patient, d/w family ED course: 78-year-old female presents the emergency department with palpitations. She appears to have occasional PVCs. Given magnesium here. She is unsure of her ho ar medications and her doses, therefore we will not adjust her medications tonight. We will have her follow-up with her doctor for further care. No significant lab abnormalities. Patient counseled regarding signs and symptoms for which I believe and urgent re-evaluation would be necessary. Patient with good understanding of and agreement to plan and is comfortable going home at this time This document was made in part using voice recognition software. While efforts are made to proofread this document, sound alike and grammatical errors may occur. Departure - Departure Disposition: 01 Home, Self Care Clinical Impression: PVC (premature ventricular contraction) Condition: Good Instructions: ED Palpitations Follow-Up: Fidel Goodman DO [Primary Care Provider] - Within 1 week Comments: Avoid caffeine and stimulants. Return if you worsen. Follow-up with your doctor for further care. You are having premature ventricular contractions on the heart monitor yunior. Discharge Date/Time: 03/15/19 19:46
[2019-03-15 17:24] LABS: ALBUMIN/GLOBULIN RATIO 1.3 (1.0-2.2); BILIRUBIN,TOTAL 0.9 mg/dL (0.2-1.0); CREATININE 0.7 mg/dL (0.4-1.0); TOTAL PROTEIN 7.1 g/dL (6.7-8.2)
[2019-03-15] MEDS ORDERED: MAGNESIUM SULFATE 2 GRAM 2 GM/50 ML BAG IV ONE (17:35)
[2019-03-15 17:49] LABS: MAGNESIUM 2.2 mg/dL (1.7-2.8); PHOSPHORUS 4.1 mg/dL (2.5-4.6)
--- NOTE | 2019-03-15 17:50 | XRAY Report ---
Reason: Chest Pain Procedure Date: 03/15/2019 Accession Number: [id number] / [id number] Procedure: XR - Chest 1 View X-Ray CPT Code: 75588 Final Report FULL RESULT: EXAM: CHEST RADIOGRAPHY EXAM DATE: 03/15/2019 05:12 PM. CLINICAL HISTORY: Chest Pain. COMPARISON: THORACIC SPINE 3 VIEW 09/11/2017 5:12 PM. TECHNIQUE: 1 view. FINDINGS: Lungs/Pleura: No dense consolidation. No large effusion or pneumothorax. No pulmonary edema. Mediastinum: Heart and mediastinal contours are unremarkable. Other: Surgical clips in the left breast and bilateral axilla. Right hemidiaphragm is elevated. IMPRESSION: No acute radiographic pulmonary abnormalities. RADIA
[2019-03-15 19:45] VITALS: BP 129/63
== END 2019-03-15 19:46 | disposition home or self-care (01) ==
LOC: ED 16:32
DX: I49.3 Ventricular premature depolarization (principal); I10 Essential (primary) hypertension; Z79.82 Long term (current) use of aspirin
CPT/HCPCS: 36415; 71045; 80053; 83690; 83735; 84100; 84484; 85025; 93005; 96365; 99284

== ENCOUNTER 2019-10-25 12:47 | Outpatient (CLI) | payer MEDICARE, BC ==
--- NOTE | 2019-10-26 06:25 | DEXA Report ---
PROCEDURE: Dexa Spine and/or Hip INDICATIONS: BONE DISORDER TECHNIQUE: Dual energy x-ray absorptiometry (DXA) was performed on a [employer]bridge Digital System. Regions measur ed are the AP Spine, femoral neck, and if needed forearm. COMPARISON: 11/17/2016. FINDINGS: Lumbar Spine: Bone Mineral Density 1.255 g/cm/cm,T score 0.6, normal. This is compared to 0.4 on prior exam. Left Hip: Bone Mineral Density 0.807 g/cm/cm,T score -1.6, osteopenia. This is compared to -1.4 on prior exam. Left Femoral Neck: Bone Mineral Density 0.898 g/cm/cm, T score -1.0, normal. This is compared to -1.1 on prior exam. (T score greater or equal to -1.0: NORMAL) (T score from -1.1 to -2.4: OSTEOPENIA) (T score less than or equal to -2.5 to: OSTEOPOROSIS) Impression: Mild osteopenia within the left hip, progressive compared to prior exam. Patients with diagnosis of osteoporosis or osteopenia should have regular bone mineral density assess ment. For those eligible for Medicare, routine testing is allowed once every 2 years. Testing frequ ency can be increased for patients who have rapidly progressing disease or for those who are receivin g medical therapy to restore bone mass. Reviewed by: Cassie Reaves MD on 10/25/2019 3:23 PM PDT Approved by: Casise Reaves MD on 10/25/2019 3:23 PM PDT Station ID: [id number]
== END 2019-10-25 12:48 | disposition home or self-care (01) ==
LOC: DI 12:47
PROVIDERS: ATTEND Family Medicine
DX: M85.88 Other specified disorders of bone density and structure, other site (principal)
CPT/HCPCS: 77080

== ENCOUNTER 2020-07-02 13:09 | Outpatient (CLI) | payer MEDICARE, BC ==
--- NOTE | 2020-07-03 09:38 | Mammography Report ---
BILATERAL DIGITAL SCREENING MAMMOGRAM: 07/02/2020 CLINICAL: Routine screening. Personal history of left breast cancer. Comparison is made to exams dated: 01/11/2019 mammogram, 12/18/2017 mammogram, 11/28/2017 mammogram, mammogram, 09/11/2015 mammogram, and [facility] There are scattered fibroglandular elements in both breasts. There is a biopsy clip in the right breast. There also are benign post operative findings in the lef t breast. No significant masses, calcifications, or other findings are seen in either breast. There has been no significant interval change. IMPRESSION: BENIGN There is no mammographic evidence of malignancy. A 1 year screening mammogram is recommended. This exam was interpreted at Station ID: [id number]. NOTE: For mammograms, a report in lay terms will be sent to the patient. Approximately 15% of breast malignancies will not be visualized mammographically. In the management of a palpable breast mass, a negative mammogram must not discourage biopsy of a clinically suspicious lesion. Electronically Signed By: Bhavesh Yepez M.D. [facility] [place]:07/02/2020 15:47:27 ACR BI-RADS Category 2: Benign Finding(s) 3342F PARENCHYMAL PATTERN: (A) - The breast(s) demonstrate(s) scattered fibroglandular densities. BI-RADS CATEGORY: (2) - 2 RECOMMENDATION: (ANNUAL) - Recommend routine annual screening mammography. [id number] 1 year screening LATERALITY: (B)
== END 2020-07-02 13:10 | disposition home or self-care (01) ==
LOC: DI.N 13:09
DX: Z12.31 Encounter for screening mammogram for malignant neoplasm of breast (principal); Z85.3 Personal history of malignant neoplasm of breast

== ENCOUNTER 2020-09-04 21:32 | Emergency (ER) | payer MEDICARE, BC ==
--- NOTE | 2020-09-04 21:53 | ED Physician Documentation ---
PD HPI CHEST PAIN - Stated complaint Stated Complaint: SOA/LT CP - Chief complaint Chief Complaint: Cardiac - History obtained from History obtained from: Patient - History of Present Illness Timing - onset: Today (about noon, while just opening mail.) Timing - onset during: Light activity Timing - duration: Hours Timing - details: Abrupt onset, Still present Quality: Aching, Pain Location: Left chest Radiation: Neck, Left upper extremity Improved by: No: Rest Worsened by: Movement, Palpation. No: Exertion, Inspiration Associated symptoms: No: Shortness of air, Nausea, Feeling faint / dizzy, Palpitations, Cough Similar symptoms before: Has not had sx before Recently seen: Not recently seen Review of Systems Constitutional: denies: Fever, Chills Nose: denies: Rhinorrhea / runny nose, Congestion Throat: denies: Sore throat Cardiac: denies: Palpitations, Pedal edema, Calf pain Respiratory: denies: Cough GI: denies: Abdominal Pain, Nausea, Vomiting Skin: denies: Rash, Lesions Neurologic: denies: Focal weakness, Numbness, Near syncope PD PAST MEDICAL HISTORY - Past Medical History Past Medical History: Yes Cardiovascular: Hypertension, High cholesterol Respiratory: None Neuro: None Endocrine/Autoimmune: None 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 HEENT: Glaucoma Psych: None, Claustrophobia Musculoskeletal: Osteoarthritis Derm: None - Past Surgical History Past Surgical History: Yes 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, 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 HEENT: Cataracts - Present Medications Home Medications: Ambulatory Orders Medication Instructions Recorded Confirmed Calcitonin,[place],Synthetic 3.7 ml NS DAILY 11/01/12 09/04/20 [Calcitonin-[place]] Calcium Citrate/Vitamin D3 1 each PO BID 11/01/12 09/04/20 [Citracal + D Maximum Caplet] Cholecalciferol (Vitamin D3) 2,000 unit PO DAILY 11/01/12 09/04/20 [Vitamin D] Latanoprost 0.005% Ophth Drops 1 drops OPTH QPM 11/01/12 09/04/20 [Xalatan] Lovastatin [Mevacor] 20 mg PO DAILY 11/01/12 09/04/20 atenoloL [Tenormin] 25 mg PO DAILY 11/01/12 09/04/20 - Allergies Allergies/Adverse Reactions: Allergies Allergy/AdvReac Type Severity Reaction Status Date / Time hydrocodone [Hydrocodone] Allergy Severe Rash Verified 09/04/20 21:39 Tetanus Vaccines and Toxoid Allergy Severe Edema Verified 09/04/20 21:39 [Tetanus Vaccines & Toxoid] acetaminophen [From Endocet] Allergy Unknown Verified 09/04/20 21:39 latex Allergy Rash Verified 09/04/20 21:39 oxycodone [From Endocet] Allergy Unknown Verified 09/04/20 21:39 - Social History Does the pt smoke?: No Smoking Status: Never smoker Does the pt drink ETOH?: Yes Does the pt have substance abuse?: No - Immunizations Immunizations are current?: Yes - POLST Patient has POLST: No PD ED PE NORMAL - Vitals Vital signs reviewed: Yes - General General: Alert and oriented X 3, No acute distress, Well developed/nourished - HEENT HEENT: Pharynx benign - Neck Neck: Supple, no meningeal sign, No adenopathy - Cardiac Cardiac: RRR, No murmur - Respiratory Respiratory: Clear bilaterally, Other (local tenderness left chest wall muscles lateral pectoral area) - Abdomen Abdomen: Soft, Non tender - Derm Derm: Normal color, Warm and dry - Extremities Extremities: No edema, No calf tenderness / cord - Neuro Neuro: Alert and oriented X 3, No motor deficit, Normal speech Results - Vitals Vitals: Vital Signs - 24 hr 09/04/20 09/04/20 09/04/20 21:37 21:52 23:10 Temperature 36.6 C 37 C Heart Rate 58 L 62 Respiratory 16 21 26 H Rate Blood Pressure 161/72 H 159/76 H O2 Saturation 96 95 Oxygen O2 Source Room air - EKG (time done) 21:38 Rate: Rate (enter#) (60) Rhythm: NSR Mize: Normal Intervals: Normal MA QRS: Normal Ischemia: Normal ST segments. No: ST elevation c/w ischemia, ST depression - Labs Labs: Laboratory Tests 09/04/20 09/04/20 09/04/20 21:52 21:52 21:52 WBC 6.0 RBC 4.62 Hgb 13.8 Hct 43.0 MCV 93.1 MCH 29.9 MCHC 32.1 RDW 12.3 Plt Count 232 MPV 10.4 Neut # (Auto) 3.4 Lymph # (Auto) 2.0 [place] # (Auto) 0.4 Eos # (Auto) 0.1 Baso # (Auto) 0.1 Absolute Nucleated RBC 0.00 Nucleated RBC % 0.0 Sodium 138 Potassium 4.0 Chloride 103 Carbon Dioxide 27 Anion Gap 8.0 BUN 16 Creatinine 0.7 Estimated GFR (MDRD) 81 L Glucose 104 H Calcium 9.3 Total Bilirubin 1.0 AST 20 ALT 16 Alkaline Phosphatase 54 Troponin I High Sens 6.4 Total Protein 7.4 Albumin 4.1 Globulin 3.3 Albumin/Globulin Ratio 1.2 Lipase 37 - Rads (name of study) chest xray Radiology: Prelim report reviewed (no acute process), See rad report PD MEDICAL DECISION MAKING - ED course Complexity details: reviewed results, considered differential, d/w patient Departure - Departure Disposition: 01 Home, Self Care Clinical Impression: Chest wall pain Chest pain Qualifiers: Chest pain type: precordial pain Qualified Code(s): R07.2 - Precordial pain Condition: Stable Record reviewed to determine appropriate education?: Yes Instructions: ED Chest Pain Costochondritis Follow-Up: Fdiel Goodman DO [Primary Care Provider] - Comments: Your chest x-ray, EKG, blood tests are normal. No signs of heart or lung cause of your symptoms. With the local tenderness, we will presume some inflammation of the cartilage. Treat this with an anti-inflammatory such as ibuprofen or naproxen 2 tablets 3 times a day. To that add Tylenol every 4-6 hours if needed for pain. I would anticipate improvement over the next several days and resolved by 3 to 5 days. Follow-up with your primary if not. Return if other symptoms are worsening. Discharge Date/Time: 09/04/20 23:17
[2020-09-04 21:57] LABS: BASOPHILS # (AUTO) 0.1 10^3/uL (0.0-0.1); BASOPHILS % (AUTO) 1.2 %; EOSINOPHILS # (AUTO) 0.1 10^3/uL (0.0-0.7); EOSINOPHILS % (AUTO) 1.2 %; HGB - HEMOGLOBIN 13.8 g/dL (12.0-16.0); LYMPHOCYTES % (AUTO) 34.1 %; MEAN CORPUSCULAR HEMOGLOBIN 29.9 pg (27.0-31.0); MEAN CORPUSCULAR HGB CONC 32.1 g/dL (32.0-36.0); MEAN CORPUSCULAR VOLUME 93.1 fL (81.0-99.0); MEAN PLATELET VOLUME 10.4 fL (7.9-10.8); MONOCYTES # (AUTO) 0.4 10^3/uL (0.0-1.0); MONOCYTES % (AUTO) 6.7 %; NEUTROPHILS # (AUTO) 3.4 10^3/uL (1.5-6.6); NEUTROPHILS % (AUTO) 56.5 %; PLT - PLATELET COUNT 232 10^3/uL (130-450); RED BLOOD COUNT 4.62 10^6/uL (4.20-5.40); RED CELL DISTRIBUTION WIDTH 12.3 % (12.0-15.0)
[2020-09-04 22:14] LABS: ALBUMIN 4.1 g/dL (3.2-5.5); ALBUMIN/GLOBULIN RATIO 1.2 (1.0-2.2); CALCIUM 9.3 mg/dL (8.5-10.3); CREATININE 0.7 mg/dL (0.4-1.0); TOTAL PROTEIN 7.4 g/dL (6.7-8.2)
[2020-09-04] MEDS ORDERED: KETOROLAC 30 MG/ML VIAL IM STA (22:24)
[2020-09-04 23:11] VITALS: BP 159/76
--- NOTE | 2020-09-05 08:21 | XRAY Report ---
PROCEDURE: Chest 1 View X-Ray INDICATIONS: Chest Pain TECHNIQUE: One view of the chest was acquired. COMPARISON: 03/15/2019 FINDINGS: Surgical changes and devices: Bilateral axillary clips. Lungs and pleura: No pleural effusions or pneumothorax. Lungs are clear. Chronic elevation of righ t hemidiaphragm. Mediastinum: Mediastinal contours appear normal. Heart size is normal. Bones and chest wall: No suspicious bony lesions. Overlying soft tissues appear unremarkable. IMPRESSION: No evidence acute pulmonary process. A preliminary report with the above findings was provided at the time of the study by [facility]. Reviewed by: Chris Garnica MD on 09/05/2020 7:20 AM RONALD Approved by: Chris Garnica MD on 09/05/2020 7:20 AM RONALD Station ID: [id number]
== END 2020-09-04 23:17 | disposition home or self-care (01) ==
LOC: ED 21:32
DX: R07.89 Other chest pain (principal); R07.2 Precordial pain; I49.1 Atrial premature depolarization; I10 Essential (primary) hypertension
CPT/HCPCS: 36415; 80053; 83690; 84484; 85025; 93005; 96372; 99284

== ENCOUNTER 2020-09-12 08:00 | Outpatient (CLI) | payer MEDICARE, BC | END 2020-09-12 23:59 | disposition home or self-care (01) | LOC: LAB.N 08:00 | PROVIDERS: ATTEND Nurse Practitioner | DX: R68.89 Other general symptoms and signs (principal) | CPT/HCPCS: 87086 ==

== ENCOUNTER 2020-09-12 21:03 | Emergency (ER) | payer MEDICARE, BC ==
[2020-09-12 21:44] LABS: BASOPHILS # (AUTO) 0.1 10^3/uL (0.0-0.1); BASOPHILS % (AUTO) 0.8 %; EOSINOPHILS # (AUTO) 0.1 10^3/uL (0.0-0.7); EOSINOPHILS % (AUTO) 1.3 %; HCT - HEMATOCRIT 43.5 % (37.0-47.0); HGB - HEMOGLOBIN 13.9 g/dL (12.0-16.0); LYMPHOCYTES # (AUTO) 1.7 10^3/uL (1.5-3.5); LYMPHOCYTES % (AUTO) 27.3 %; MEAN CORPUSCULAR HEMOGLOBIN 29.9 pg (27.0-31.0); MEAN CORPUSCULAR VOLUME 93.5 fL (81.0-99.0); MEAN PLATELET VOLUME 10.2 fL (7.9-10.8); MONOCYTES # (AUTO) 0.5 10^3/uL (0.0-1.0); MONOCYTES % (AUTO) 7.6 %; NEUTROPHILS # (AUTO) 3.9 10^3/uL (1.5-6.6); NEUTROPHILS % (AUTO) 62.7 %; PLT - PLATELET COUNT 221 10^3/uL (130-450); RED BLOOD COUNT 4.65 10^6/uL (4.20-5.40); RED CELL DISTRIBUTION WIDTH 12.3 % (12.0-15.0); WHITE BLOOD COUNT 6.2 x10^3/uL (4.8-10.8)
[2020-09-12 21:45] LABS: BILIRUBIN,URINE NEGATIVE (NEGATIVE); GLUCOSE, URINE (UA) NEGATIVE (NEGATIVE); KETONES,URINE (UA) NEGATIVE (NEGATIVE); LEUKOCYTE ESTERASE, URINE NEGATIVE (NEGATIVE); NITRITE,URINE NEGATIVE (NEGATIVE); OCCULT BLOOD,URINE SMALL (NEGATIVE); PROTEIN,URINE NEGATIVE (NEGATIVE); UROBILINOGEN,URINE 0.2 (NORMAL) E.U./dL (NORMAL)
[2020-09-12 21:46] LABS: CLARITY,URINE CLEAR (CLEAR)
[2020-09-12 21:58] LABS: ALBUMIN 4.5 g/dL (3.2-5.5); ALBUMIN/GLOBULIN RATIO 1.4 (1.0-2.2); BILIRUBIN,TOTAL 1.1 mg/dL (0.2-1.0); CALCIUM 9.6 mg/dL (8.5-10.3); CREATININE 0.7 mg/dL (0.4-1.0); POTASSIUM 3.5 mmol/L (3.5-5.0); TOTAL PROTEIN 7.7 g/dL (6.7-8.2)
[2020-09-12 21:59] LABS: RBC,URINE 0-5 /HPF (0-5); SQUAMOUS EPITHELIAL CELL,UR MANY Squamous (<= Few); WBC,URINE 0-3 /HPF (0-5)
[2020-09-12 22:00] LABS: BACTERIA,URINE Few /HPF (None Seen)
--- NOTE | 2020-09-12 22:45 | ED Physician Documentation ---
PD HPI NVD - Stated complaint Stated Complaint: BLOODY DIARRHEA - Chief complaint Chief Complaint: Abd Pain - History obtained from History obtained from: Patient - History of Present Illness Timing - onset: Last night Timing - duration: Days (1) Timing - details: Abrupt onset, Still present (she states abrupt diarrhea last night and went 8 times overnight. This morning noted some bright red blood streaks with the diarrhea. Unknown if blood with it during night as did not look per se. No feeling of lightheadedness. Having lower abd cramping.) Associated symptoms: Abdominal pain. No: Loss of appetite, Weight loss Contributing factors: No: Bad food ( ate similar without symptoms, though patient ate a lot of cherries yesterday.), Travel, Recent antibiotics, Anticoagulated Similar symptoms before: Has not had sx before Recently seen: Not recently seen Review of Systems Constitutional: denies: Fever, Chills Nose: denies: Rhinorrhea / runny nose, Congestion Throat: denies: Sore throat Respiratory: denies: Cough PD PAST MEDICAL HISTORY - Past Medical History Cardiovascular: Hypertension, High cholesterol Respiratory: None Neuro: None Endocrine/Autoimmune: None GI: GERD, Other (no prior diverticulitis) [employer]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 HEENT: Glaucoma Psych: None, Claustrophobia Musculoskeletal: Osteoarthritis Derm: None - Past Surgical History Past Surgical History: Yes 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, 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 HEENT: Cataracts - Present Medications Home Medications: Ambulatory Orders Medication Instructions Recorded Confirmed Calcitonin,Raven,Synthetic 3.7 ml NS DAILY 11/01/12 09/04/20 [Calcitonin-Raven] Calcium Citrate/Vitamin D3 1 each PO BID 11/01/12 09/04/20 [Citracal + D Maximum Caplet] Cholecalciferol (Vitamin D3) 2,000 unit PO DAILY 11/01/12 09/04/20 [Vitamin D] Latanoprost 0.005% Ophth Drops 1 drops OPTH QPM 11/01/12 09/04/20 [Xalatan] Lovastatin [Mevacor] 20 mg PO DAILY 11/01/12 09/04/20 atenoloL [Tenormin] 25 mg PO DAILY 11/01/12 09/04/20 Diphenoxylate/Atropine [Lomotil] 1 each PO QID PRN #12 tablet 09/13/20 Naproxen Sodium [Naprelan] 375 mg PO BID PRN #14 tab 09/13/20 - Allergies Allergies/Adverse Reactions: Allergies Allergy/AdvReac Type Severity Reaction Status Date / Time hydrocodone [Hydrocodone] Allergy Severe Rash Verified 09/12/20 21:18 Tetanus Vaccines and Toxoid Allergy Severe Edema Verified 09/12/20 21:18 [Tetanus Vaccines & Toxoid] acetaminophen [From Endocet] Allergy Unknown Verified 09/12/20 21:18 latex Allergy Rash Verified 09/12/20 21:18 oxycodone [From Endocet] Allergy Unknown Verified 09/12/20 21:18 - Social History Does the pt smoke?: No Smoking Status: Never smoker Does the pt drink ETOH?: Yes Does the pt have substance abuse?: No - Immunizations Immunizations are current?: Yes - POLST Patient has POLST: No PD ED PE NORMAL - Vitals Vital signs reviewed: Yes - General General: Alert and oriented X 3, No acute distress, Well developed/nourished - Neck Neck: Supple, no meningeal sign, No adenopathy - Cardiac Cardiac: RRR, No murmur - Respiratory Respiratory: Clear bilaterally - Abdomen Abdomen: Normal bowel sounds, Soft, Non distended, No organomegaly, Other (mild tenderness without guarding nor rebound LLQ area. ) - Female Female : Deferred - Rectal Rectal: Deferred - Back Back: No CVA TTP - Derm Derm: Normal color, Warm and dry - Extremities Extremities: No edema, No calf tenderness / cord - Neuro Neuro: Alert and oriented X 3, No motor deficit, Normal speech Results - Vitals Vitals: Oxygen O2 Source Room air - Labs Labs: Laboratory Tests 09/12/20 09/12/20 09/12/20 21:39 21:40 21:40 WBC 6.2 RBC 4.65 Hgb 13.9 Hct 43.5 MCV 93.5 MCH 29.9 MCHC 32.0 RDW 12.3 Plt Count 221 MPV 10.2 Neut # (Auto) 3.9 Lymph # (Auto) 1.7 Avery # (Auto) 0.5 Eos # (Auto) 0.1 Baso # (Auto) 0.1 Absolute Nucleated RBC 0.00 Nucleated RBC % 0.0 Sodium 141 Potassium 3.5 Chloride 104 Carbon Dioxide 27 Anion Gap 10.0 BUN 17 Creatinine 0.7 Estimated GFR (MDRD) 81 L Glucose 107 H Calcium 9.6 Total Bilirubin 1.1 H AST 21 ALT 19 Alkaline Phosphatase 57 Total Protein 7.7 Albumin 4.5 Globulin 3.2 Albumin/Globulin Ratio 1.4 Lipase 39 Urine Color YELLOW Urine Clarity CLEAR Urine pH 6.0 Ur Specific [place] 1.010 Urine Protein NEGATIVE Urine Glucose (UA) NEGATIVE Urine Ketones NEGATIVE Urine Occult Blood SMALL H Urine Nitrite NEGATIVE Urine Bilirubin NEGATIVE Urine Urobilinogen 0.2 (NORMAL) Ur Leukocyte Esterase NEGATIVE Urine RBC 0-5 Urine WBC 0-3 Ur Squamous Epith Cells MANY Squamous H Urine Bacteria Few Ur Microscopic Review INDICATED Urine Culture Comments NOT INDICATED - Rads (name of study) abd/pelvic CT Radiology: Prelim report reviewed (diveticula without noted diverticulitis. No other acute process), See rad report PD MEDICAL DECISION MAKING - ED course Complexity details: reviewed results (good CBC, normal vitals. CT showing some diverticula without noted diverticulitis. Can treat as likely inflammed diverticula with bleeding versus acute diarrhea with bleeding. Can give it 1-2 days for symptoms and recheck if worse/not resolved. ), considered differential (consider food related, contaminated versus just irritation (too many cherries) or diverticulitis. Degree of bleeding sounds mild but will check CBC. ), d/w patient ED course: acute diarrhea with bleeding diverticulosis lower abdominal cramping Departure - Departure Disposition: 01 Home, Self Care Condition: Stable Record reviewed to determine appropriate education?: Yes Follow-Up: Fidel Goodman DO [Primary Care Provider] - Prescriptions: Diphenoxylate/Atropine [Lomotil] 1 each PO QID PRN #12 tablet PRN Reason: Diarrhea Naproxen Sodium [Naprelan] 375 mg PO BID PRN #14 tab PRN Reason: Pain Comments: Your CT scan did not show any acute localized process. Consider likely an acute inflammation of the colon leading to the diarrhea with some small blood vessel irritated causing the bleeding. At this point the cause could be an irritation from food intolerance or mechanical irritation such as the syed skins or such. However it may also be infectious such as a food poisoning or stomach virus. Other consideration would be a localized irritation of the colon (colitis) related to a diverticulum. Again CT did not show any acute diverticulitis. At this point would treat it with an anti-inflammatory and also antidiarrheal medicines over the next day or 2 and see if things just improve. If so then no acute further work-up is needed. If the diarrhea persists and/or some bleeding with it or you develop local abdominal pain, fever, vomiting or other concerns then return for further evaluation. Discharge Date/Time: 09/13/20 02:00
[2020-09-12] MEDS ORDERED: LOPERAMIDE 2 MG CAPSULE PO STA (22:58)
[2020-09-12] MEDS ORDERED: IOVERSOL 320 100 ML VIAL IVP ONE (23:35)
[2020-09-13] MEDS ORDERED: IOVERSOL 320 100 ML VIAL IVP ONE (00:13)
[2020-09-13] MEDS ORDERED: KETOROLAC 15 MG/ML VIAL IVP STA (01:24)
[2020-09-13 01:58] VITALS: BP 160/68
--- NOTE | 2020-09-13 08:23 | CT Report ---
PROCEDURE: Abdomen/Pelvis W INDICATIONS: diarrhea, LLQ pain CONTRAST: IV CONTRAST: Optiray 320 ml: 100 PO CONTRAST: *NO PO CONTRAST TECHNIQUE: After the administration of intravenous contrast, 5 mm thick sections acquired from the diaphragms to the symphysis. 5 mm thick coronal and sagittal reformats were acquired. For radiation dose reducti on, the following was used: automated exposure control, adjustment of mA and/or kV according to evans ent size. COMPARISON: 06/20/2014 FINDINGS: Image quality: Excellent. ABDOMEN: Lung bases: Lung bases are clear. Mild cardiomegaly. Solid organs: Liver and spleen are normal in size and enhancement. Gallbladder is unremarkable Kei iary system is non dilated. Pancreas enhances normally. No adrenal nodules. Kidneys demonstrate no rmal size and enhancement, without hydronephrosis. Again noted is an extensively peripherally calcif ied benign-appearing cystic lesion off the anterior aspect of the right kidney, unchanged over the pa st 7 years. There is an exophytic lesion off of the lower pole of the left kidney measuring 2.6 cm wh ich most likely represents a hyperdense cyst. Peritoneum and bowel: Bowel loops demonstrate normal wall thickness and caliber. No free fluid or a ir. Nodes and vessels: No retroperitoneal or mesenteric adenopathy by size criteria. Aorta and inferior vena cava are normal in size. Miscellaneous: No ventral hernias. PELVIS: Genitourinary: Bladder wall thickness is normal. Miscellaneous: No inguinal hernias or adenopathy. Uterus is surgically absent. Bones: No suspicious bony lesions. No vertebral body compression fractures. Mild S-shaped thoracol umbar scoliosis. IMPRESSION: 1. Mild cardiomegaly. 2. No evidence of acute abdominal process. 3. Stable benign-appearing densely peripherally calcified right renal lesion. 4. Interval development of a probable hyperdense cyst off the left kidney measuring 2.6 cm. However, correlation with ultrasound to prove that it is a cyst is suggested. Findings are concordant with the preliminary report provided at the time of the study by [employer]. Reviewed by: Chris Garnica MD on 09/13/2020 7:21 AM RONALD Approved by: Chris Garnica MD on 09/13/2020 7:21 AM AKPHANI Station ID: [id number]
== END 2020-09-13 02:00 | disposition home or self-care (01) ==
LOC: ED 21:03
DX: K92.1 Melena (principal); R19.7 Diarrhea, unspecified; R10.30 Lower abdominal pain, unspecified; K57.90 Diverticulosis of intestine, part unspecified, without perforation or abscess without bleeding; R68.89 Other general symptoms and signs
CPT/HCPCS: 36415; 74177; 80053; 81001; 83690; 85025; 87086; 96374; 99283; 99284; A9270; Q9967; 81003

== ENCOUNTER 2020-09-17 08:00 | Outpatient (CLI) | payer MEDICARE, BC ==
[2020-09-17 18:15] LABS: ALBUMIN 4.1 g/dL (3.2-5.5); ALBUMIN/GLOBULIN RATIO 1.5 (1.0-2.2); ALKALINE PHOSPHATASE 44 IU/L (42-121); ALT ALANINE AMINOTRANSFERASE 16 IU/L (10-60); AST ASPARTATE AMINOTRANSFERASE 18 IU/L (10-42); BILIRUBIN,TOTAL 1.3 mg/dL (0.2-1.0); BUN - BLOOD UREA NITROGEN 15 mg/dL (6-20); CALCIUM 9.1 mg/dL (8.5-10.3); CARBON DIOXIDE - CO2 29 mmol/L (21-32); CHLORIDE 101 mmol/L (101-111); CHOL/HDL RATIO 2.4 (<4.4); CHOLESTEROL 172 mg/dL; CREATININE 0.6 mg/dL (0.4-1.0); GFR - MDRD 96 (>89); GLUCOSE 98 mg/dL (70-100); HDL CHOLESTEROL 73 mg/dL; LDL CHOLESTEROL,CALCULATED 81 mg/dL; LDL/HDL RATIO 1.1 (<4.4); POTASSIUM 3.8 mmol/L (3.5-5.0); SODIUM 138 mmol/L (135-145); TOTAL PROTEIN 6.9 g/dL (6.7-8.2); TRIGLYCERIDES 90 mg/dL; VLDL CHOLESTEROL 18 mg/dL
[2020-09-17 18:22] LABS: THYROID STIMULATING HORMONE 2.13 uIU/mL (0.34-5.60)
[2020-09-17 18:35] LABS: BASOPHILS # (AUTO) 0.1 10^3/uL (0.0-0.1); BASOPHILS % (AUTO) 1.2 %; EOSINOPHILS # (AUTO) 0.1 10^3/uL (0.0-0.7); EOSINOPHILS % (AUTO) 1.4 %; HCT - HEMATOCRIT 42.1 % (37.0-47.0); HGB - HEMOGLOBIN 13.3 g/dL (12.0-16.0); LYMPHOCYTES # (AUTO) 1.5 10^3/uL (1.5-3.5); LYMPHOCYTES % (AUTO) 33.9 %; MEAN CORPUSCULAR HEMOGLOBIN 30.4 pg (27.0-31.0); MEAN CORPUSCULAR HGB CONC 31.6 g/dL (32.0-36.0); MEAN CORPUSCULAR VOLUME 96.3 fL (81.0-99.0); MEAN PLATELET VOLUME 12.1 fL (7.9-10.8); MONOCYTES # (AUTO) 0.3 10^3/uL (0.0-1.0); MONOCYTES % (AUTO) 6.5 %; NEUTROPHILS # (AUTO) 2.4 10^3/uL (1.5-6.6); NEUTROPHILS % (AUTO) 56.8 %; PLT - PLATELET COUNT 196 10^3/uL (130-450); RED BLOOD COUNT 4.37 10^6/uL (4.20-5.40); RED CELL DISTRIBUTION WIDTH 12.4 % (12.0-15.0); WHITE BLOOD COUNT 4.3 x10^3/uL (4.8-10.8)
== END 2020-09-17 23:59 | disposition home or self-care (01) ==
LOC: LAB.WCP 08:00
PROVIDERS: ATTEND Family Medicine
DX: I10 Essential (primary) hypertension (principal)
CPT/HCPCS: 36415; 80053; 80061; 83721; 84443; 85025

== ENCOUNTER 2020-11-10 08:47 | Outpatient (CLI) | payer MEDICARE, BC ==
--- NOTE | 2020-11-10 16:20 | Ultrasound Report ---
PROCEDURE: Kidneys and bladder. INDICATIONS: KIDNEY CYST TECHNIQUE: Real-time scanning was performed of the retroperitoneal organs, with image documentation. COMPARISON: CT abdomen and pelvis 09/13/2020 and 06/20/2014. FINDINGS: Kidneys: Kidneys are normal in size. Right kidney measures 11.4 cm long; left kidney measures 11.0 cm long. Right renal cortical thickness is 1.7 cm; left renal cortical thickness is 1.8 cm. No hydr onephrosis, or nephrolithiasis. There is a 4.7 x 4.7 x 3.7 cm peripherally calcified mass involving t he inferior pole of the right kidney which is not significantly changed in size compared to prior CT scans. There is a 2.5 x 2.2 x 2.4 cm which has a simple sonographic appearance involving the lower po le left kidney. Multiple small peripelvic left renal cysts are noted largest which measures 0.9 cm in diameter. Bladder: Prevoid urinary bladder volume 121 cc. Postvoid residual urinary bladder volume 58 cc. The r ight and left renal jets are identified. Urinary bladder is sonographically normal. IMPRESSION: 1. Partially calcified exophytic right renal lesion stable compared to prior CT examinations. 2. 2.5 x 2.2 x 2.4 cm simple cyst involving the lower pole of the left kidney (Bosniak 1). Reviewed by: Elena Mandujano MD, PhD on 11/10/2020 4:19 PM PDT Approved by: Elena Mandujano MD, PhD on 11/10/2020 4:19 PM PDT Station ID: [id number]
== END 2020-11-10 08:48 | disposition home or self-care (01) ==
LOC: DI 08:47
PROVIDERS: ATTEND Family Medicine
DX: N28.1 Cyst of kidney, acquired (principal); R93.421 Abnormal radiologic findings on diagnostic imaging of right kidney

== ENCOUNTER 2020-11-10 08:49 | Outpatient (CLI) | payer MEDICARE, BC ==
[2020-11-10] MEDS ORDERED: GADOBUTROL 15 MMOL/15 ML VIAL ONE (10:08)
--- NOTE | 2020-11-10 13:04 | MRI Report ---
PROCEDURE: Brain W/WO INDICATIONS: Headache CONTRAST: IV CONTRAST: Gadavist ml: 8.6 TECHNIQUE: Noncontrast axial T1 spin echo, axial T2 fast spin echo, sagittal and axial FLAIR, coronal T2 fast sp in echo, axial gradient echo, axial diffusion and ADC through the brain. After the administration of contrast, axial and coronal T1 spin echo with fat saturation through the brain. COMPARISON: 09/11/[address] FINDINGS: Image quality: Excellent. CSF spaces: Basal cisterns are patent. No extra-axial fluid collections. Ventricles are normal in size and shape. Brain: No midline shift. No intracranial bleeds or masses. No abnormal intracranial enhancement. There is advanced cerebral volume loss for age. There is advanced periventricular white matter chron ic small vessel ischemic change. The brainstem appears normal. Diffusion-weighted images demonstrat e no acute ischemic insults. No chronic ischemic insults. Normal intravascular flow voids are prese nt. Skull and face: Calvarial marrow is normal in signal. Orbits appear normal. Sinuses: Sinuses and mastoids appear clear. IMPRESSION: No acute intracranial abnormality. Advanced global cerebral volume loss and chronic micr ovascular ischemic changes. Reviewed by: Agustín Lockwood MD on 11/10/2020 1:02 PM PDT Approved by: Agustín Lockwood MD on 11/10/2020 1:02 PM PDT Station ID: [id number]
[2020-11-10] MEDS ORDERED: GADOBUTROL 15 MMOL/15 ML VIAL IVP ONE (15:48)
== END 2020-11-10 08:50 | disposition home or self-care (01) ==
LOC: DI 08:49
PROVIDERS: ATTEND Family Medicine
DX: R51.9 Headache, unspecified (principal); G31.9 Degenerative disease of nervous system, unspecified; I67.82 Cerebral ischemia; N28.1 Cyst of kidney, acquired; R93.421 Abnormal radiologic findings on diagnostic imaging of right kidney
CPT/HCPCS: 70553; 76770; A9585

== ENCOUNTER 2021-05-05 10:29 | Outpatient (CLI) | payer MEDICARE, BC ==
[2021-05-05 12:59] LABS: ALBUMIN/GLOBULIN RATIO 1.2 (1.0-2.2); ALKALINE PHOSPHATASE 55 IU/L (42-121); ALT ALANINE AMINOTRANSFERASE 15 IU/L (10-60); AST ASPARTATE AMINOTRANSFERASE 18 IU/L (10-42); BILIRUBIN,TOTAL 1.2 mg/dL (0.2-1.0); BUN - BLOOD UREA NITROGEN 17 mg/dL (6-20); CALCIUM 9.5 mg/dL (8.5-10.3); CARBON DIOXIDE - CO2 29 mmol/L (21-32); CHLORIDE 99 mmol/L (101-111); CHOL/HDL RATIO 2.3 (<4.4); CHOLESTEROL 199 mg/dL; CREATININE 0.7 mg/dL (0.4-1.0); GFR - MDRD 81 (>89); GLUCOSE 112 mg/dL (70-100); HDL CHOLESTEROL 88 mg/dL; LDL CHOLESTEROL,CALCULATED 93 mg/dL; LDL/HDL RATIO 1.1 (<4.4); POTASSIUM 3.8 mmol/L (3.5-5.0); SODIUM 138 mmol/L (135-145); TOTAL PROTEIN 7.4 g/dL (6.7-8.2); TRIGLYCERIDES 90 mg/dL; VLDL CHOLESTEROL 18 mg/dL
== END 2021-05-05 10:30 | disposition home or self-care (01) ==
LOC: LAB.N 10:29
PROVIDERS: ATTEND Family Medicine
DX: I10 Essential (primary) hypertension (principal)
CPT/HCPCS: 36415; 80053; 80061; 83721

== ENCOUNTER 2021-05-17 13:36 | Outpatient (CLI) | payer MEDICARE, BC ==
--- NOTE | 2021-05-17 15:07 | XRAY Report ---
PROCEDURE: Hip w/Pelvis 1V LT INDICATIONS: L HIP PX TECHNIQUE: AP pelvis with lateral view(s) of the left hip(s). COMPARISON: Reference is made to the CT abdomen dated September 13, 2020 FINDINGS: BONES/JOINTS: No acute, displaced fracture. No widening of the pubic symphysis. The sacroiliac joints are symmetric. The femoral heads are normal ly seated within the acetabulum. Mild to moderate bilateral hip osteophytosis with joint space narrow ing. SOFT TISSUES: No acute abnormality. Redemonstrated partially calcified lesion, previously demonstrate d to originate from the right kidney. IMPRESSION: 1.No acute osseous abnormality. Reviewed by: William Benedict MD on 05/17/2021 3:05 PM PST Approved by: William Benedict MD on 05/17/2021 3:05 PM [facility] Station ID: [id number]
--- NOTE | 2021-05-18 00:38 | XRAY Report ---
PROCEDURE: Lumbar Spine 2 View INDICATIONS: ACUTE LOW BACK PX TECHNIQUE: 3 views of the lumbar spine were acquired. COMPARISON: Lumbar spine x-ray 09/11/2017, CT abdomen pelvis 09/12/2020. FINDINGS: Bones: 5 [id number] vertebrae are present. There is a mild S-shaped scoliosis of the thoracolum bar spine redemonstrated with a leftward curvature of the thoracic spine and rightward curvature of t he lumbar spine. There is mild retrolisthesis at T12-L1, L1-L2, L2-L3, and L3-L4. There is grade 1 an terolisthesis at L4-5. No vertebral body compression fractures. Moderate facet arthropathy demonstrat ed within the lower lumbar spine. There is mild to moderate multilevel degenerative disc disease thro ughout the lumbar spine. No suspicious bony lesions. Soft tissues: Overlying bowel gas pattern is normal. An oval calcification is redemonstrated in the right abdomen consistent with a stable large peripherally calcified right renal mass as seen on the prior CT. IMPRESSION: 1. No definite acute fracture or subluxation. 2. Mild S-shaped scoliosis of the thoracolumbar spine. Mild multilevel retrolisthesis in the upper lesli mbar spine and grade 1 anterolisthesis at L4-5 also redemonstrated. 3. Moderate facet arthropathy in the lower lumbar spine and mild to moderate multilevel degenerative disc disease. Reviewed by: Mik Holt MD on 05/18/2021 12:37 AM PST Approved by: Mik Holt MD on 05/18/2021 12:37 AM PST Station ID: [id number]
== END 2021-05-17 13:37 | disposition home or self-care (01) ==
LOC: DI.N 13:36
PROVIDERS: ATTEND Family Medicine
DX: Z91.81 History of falling (principal); M25.552 Pain in left hip; M43.16 Spondylolisthesis, lumbar region; M47.816 Spondylosis without myelopathy or radiculopathy, lumbar region; M51.36 Other intervertebral disc degeneration, lumbar region; M43.15 Spondylolisthesis, thoracolumbar region

== ENCOUNTER 2021-11-29 08:00 | Outpatient (CLI) | payer MEDICARE, BC ==
--- NOTE | 2021-11-29 15:19 | XRAY Report ---
PROCEDURE: Hip 2 View LT INDICATIONS: LEFT HIP PAIN TECHNIQUE: 2 views of the hip were acquired. COMPARISON: 05/17/2021 FINDINGS: Bones: Intact pelvic ring. Evaluation somewhat limited by overlapping soft tissues. No dislocation. M ild to moderate bilateral hip arthrosis. Soft tissues: No suspicious soft tissue calcifications or masses. IMPRESSION: Mild to moderate bilateral hip arthrosis. No acute radiographic abnormality. If there is high concern for internal derangement, MRI could be obtained. Reviewed by: Gamaliel Ruffin MD on 11/29/2021 3:18 PM PDT Approved by: Gamaliel Ruffin MD on 11/29/2021 3:18 PM PDT Station ID: [id number]
== END 2021-11-29 23:59 | disposition home or self-care (01) ==
LOC: DI.WOS 08:00
PROVIDERS: ATTEND Physician Assistant
DX: M16.0 Bilateral primary osteoarthritis of hip (principal)

== ENCOUNTER 2021-12-07 12:56 | Outpatient (CLI) | payer MEDICARE, BC ==
--- NOTE | 2021-12-08 10:28 | Mammography Report ---
BILATERAL DIGITAL SCREENING MAMMOGRAM: 12/07/2021 CLINICAL: Routine screening. Personal history of left breast cancer. Comparison is made to exams dated: 07/02/2020 mammogram, 01/11/2019 mammogram, 12/18/2017 mammogram, mammogram, 10/27/2016 mammogram, and 09/11/2015 mammogram - [facility]. There are scattered areas of fibroglandular density in both breasts (category b / 25%-50% glandular t issue). The left breast has post-operative findings. There is a biopsy site marker on the right breast. There is a possible oval equal density focal asymmetry in the right breast at 11 o'clock anterior dep th. This is more prominent. There also is a possible developing new oval asymmetry in the right breast middle depth medial region seen on the craniocaudal view only. No other significant masses, calcifications, or other findings are seen in either breast. IMPRESSION: INCOMPLETE: NEEDS ADDITIONAL IMAGING EVALUATION The possible oval equal density focal asymmetry in the right breast at 11 o'clock anterior depth is i ndeterminate. Additional views with possible ultrasound are recommended. The possible developing new oval asymmetry in the right breast middle depth medial region seen on the craniocaudal view only is indeterminate. Additional views with possible ultrasound are recommended. This exam was interpreted at Station ID: [id number]. NOTE: For mammograms, a report in lay terms will be sent to the patient. Approximately 15% of breast malignancies will not be visualized mammographically. In the management of a palpable breast mass, a negative mammogram must not discourage biopsy of a clinically suspicious lesion. Electronically Signed By: Cheko Sargent M.D. aty/:12/08/2021 07:12:17 ACR BI-RADS Category 0: Incomplete 3340F PARENCHYMAL PATTERN: (A) - The breast(s) demonstrate(s) scattered fibroglandular densities. BI-RADS CATEGORY: (0) - 0 Mammo and [place] [id number] Immediate follow-up LATERALITY: (R)
== END 2021-12-07 12:57 | disposition home or self-care (01) ==
LOC: DI.N 12:56
DX: Z12.31 Encounter for screening mammogram for malignant neoplasm of breast (principal); Z85.3 Personal history of malignant neoplasm of breast; R92.8 Other abnormal and inconclusive findings on diagnostic imaging of breast

== ENCOUNTER 2022-08-11 10:56 | Outpatient (CLI) | payer MEDICARE, BC ==
[2022-08-11 17:39] LABS: BASOPHILS # (AUTO) 0.1 10^3/uL (0.0-0.1); BASOPHILS % (AUTO) 1.5 %; EOSINOPHILS # (AUTO) 0.1 10^3/uL (0.0-0.7); EOSINOPHILS % (AUTO) 1.5 %; HCT - HEMATOCRIT 43.9 % (37.0-47.0); HGB - HEMOGLOBIN 13.6 g/dL (12.0-16.0); LYMPHOCYTES # (AUTO) 1.6 10^3/uL (1.5-3.5); LYMPHOCYTES % (AUTO) 34.3 %; MEAN CORPUSCULAR HEMOGLOBIN 30.2 pg (27.0-31.0); MEAN CORPUSCULAR VOLUME 97.6 fL (81.0-99.0); MEAN PLATELET VOLUME 11.6 fL (7.9-10.8); MONOCYTES # (AUTO) 0.3 10^3/uL (0.0-1.0); MONOCYTES % (AUTO) 7.3 %; NEUTROPHILS # (AUTO) 2.6 10^3/uL (1.5-6.6); NEUTROPHILS % (AUTO) 55.2 %; PLT - PLATELET COUNT 223 10^3/uL (130-450); RED CELL DISTRIBUTION WIDTH 12.5 % (12.0-15.0); WHITE BLOOD COUNT 4.7 x10^3/uL (4.8-10.8)
[2022-08-11 18:04] LABS: ALBUMIN 4.3 g/dL (3.2-5.5); ALBUMIN/GLOBULIN RATIO 1.3 (1.0-2.2); ALKALINE PHOSPHATASE 47 IU/L (42-121); ALT ALANINE AMINOTRANSFERASE 14 IU/L (10-60); AST ASPARTATE AMINOTRANSFERASE 19 IU/L (10-42); BILIRUBIN,TOTAL 1.1 mg/dL (0.2-1.0); BUN - BLOOD UREA NITROGEN 18 mg/dL (6-20); CALCIUM 9.5 mg/dL (8.5-10.3); CARBON DIOXIDE - CO2 32 mmol/L (21-32); CHLORIDE 104 mmol/L (101-111); CHOL/HDL RATIO 2.5 (<4.4); CHOLESTEROL 211 mg/dL; CREATININE 0.7 mg/dL (0.4-1.0); GFR - MDRD 80 (>89); GLUCOSE 94 mg/dL (70-100); HDL CHOLESTEROL 85 mg/dL; LDL CHOLESTEROL,CALCULATED 110 mg/dL; LDL/HDL RATIO 1.3 (<4.4); POTASSIUM 4.1 mmol/L (3.5-5.0); SODIUM 140 mmol/L (135-145); TOTAL PROTEIN 7.6 g/dL (6.7-8.2); TRIGLYCERIDES 78 mg/dL; VLDL CHOLESTEROL 16 mg/dL
[2022-08-11 18:34] LABS: THYROID STIMULATING HORMONE 1.06 uIU/mL (0.34-5.60)
[2022-08-11 20:47] LABS: ESTIMATED AVERAGE GLUCOSE 108 mg/dL (70-100); HEMOGLOBIN A1c% 5.4 % (4.27-6.07)
== END 2022-08-11 10:57 | disposition home or self-care (01) ==
LOC: LAB.N 10:56
PROVIDERS: ATTEND Physician Assistant
DX: I10 Essential (primary) hypertension (principal); E78.5 Hyperlipidemia, unspecified; R73.01 Impaired fasting glucose
CPT/HCPCS: 36415; 80053; 80061; 83036; 83721; 84443; 85025

== ENCOUNTER 2022-12-26 15:00 | Outpatient (CLI) | payer MEDICARE, BC ==
--- NOTE | 2022-12-27 09:38 | Mammography Report ---
BILATERAL DIGITAL SCREENING MAMMOGRAM WITH CAUDOCRANIAL: 12/26/2022 CLINICAL: Routine screening. Personal history of left breast cancer. Comparison is made to exams dated: 12/16/2021 mammogram, 12/07/2021 mammogram, and 07/02/2020 mammogram - [facility]. There are scattered areas of fibroglandular density in both breasts (category b / 25%-50% glandular t issue). There is a benign appearing focal asymmetry in the right breast. No significant masses, calcifications, or other findings are seen in either breast. There has been no significant interval change. IMPRESSION: BENIGN There is no mammographic evidence of malignancy. A 1 year screening mammogram is recommended. This exam was interpreted at Station ID: [id number]. NOTE: For mammograms, a report in lay terms will be sent to the patient. Approximately 15% of breast malignancies will not be visualized mammographically. In the management of a palpable breast mass, a negative mammogram must not discourage biopsy of a clinically suspicious lesion. Electronically Signed By: Margarito Brown M.D. acr/penrad:12/27/2022 08:55:11 letter sent: No_Letter ACR BI-RADS Category 2: Benign Finding(s) 3342F PARENCHYMAL PATTERN: (A) - The breast(s) demonstrate(s) scattered fibroglandular densities. BI-RADS CATEGORY: (2) - 2 Mammogram [id number] 1 year screening LATERALITY: (B)
== END 2022-12-26 15:01 | disposition home or self-care (01) ==
LOC: DI 15:00
DX: Z12.31 Encounter for screening mammogram for malignant neoplasm of breast (principal); R92.323 Mammographic fibroglandular density, bilateral breasts; Z85.3 Personal history of malignant neoplasm of breast

== ENCOUNTER 2023-01-05 12:31 | Outpatient (CLI) | payer MEDICARE, BC ==
--- NOTE | 2023-01-05 13:54 | DEXA Report ---
PROCEDURE: Dexa Spine and/or Hip INDICATIONS: OSTEOPENIA TECHNIQUE: Dual energy x-ray absorptiometry (DXA) was performed on a [employer] System. Regions measur ed are the AP Spine, femoral neck, and if needed forearm. COMPARISON: 10/25/2019 FINDINGS: Lumbar Spine: Bone Mineral Density 1.226 g/cm/cm,T score 0.4. Normal Left Femoral Neck: Bone Mineral Density 0.809 g/cm/cm, T score -1.6. Osteopenia Left Hip: Bone Mineral Density 0.769 g/cm/cm,T score -1.9. Osteopenia (T score greater or equal to -1.0: NORMAL) (T score from -1.1 to -2.4: OSTEOPENIA) (T score less than or equal to -2.5 to: OSTEOPOROSIS) Impression: By WHO criteria, this patient has osteopenia. Bone mineral density has decreased 4.7% in the interval since prior exam obtained 01/05/2023. Patients with diagnosis of osteoporosis or osteopenia should have regular bone mineral density assess ment. For those eligible for Medicare, routine testing is allowed once every 2 years. Testing frequ ency can be increased for patients who have rapidly progressing disease or for those who are receivin g medical therapy to restore bone mass. Reviewed by: Elena Mandujano MD, PhD on 01/05/2023 1:52 PM PDT Approved by: Elena Mandujano MD, PhD on 01/05/2023 1:52 PM PDT Station ID: [id number]
== END 2023-01-05 12:32 | disposition home or self-care (01) ==
LOC: DI 12:31
PROVIDERS: ATTEND Physician Assistant
DX: M85.88 Other specified disorders of bone density and structure, other site (principal); M85.89 Other specified disorders of bone density and structure, multiple sites

== ENCOUNTER 2023-03-09 08:00 | Outpatient (CLI) | payer MEDICARE, BC | END 2023-03-09 23:59 | disposition home or self-care (01) | LOC: LAB.N 08:00 | PROVIDERS: ATTEND Family Medicine | DX: R31.0 Gross hematuria (principal) | CPT/HCPCS: 87086 ==

== ENCOUNTER 2023-03-27 11:43 | Outpatient (CLI) | payer MEDICARE, BC ==
[2023-03-27] MEDS ORDERED: iohexoL-300 100 ML VIAL ONE (12:09)
[2023-03-27] MEDS ORDERED: DIATRIZOATE MEGLU/DIATRIZO SOD 30 ML BOTTLE PO ONE (12:09)
[2023-03-27 12:15] LABS: CREATININE 0.6 mg/dL (0.6-1.3)
[2023-03-27] MEDS: DIATRIZOATE MEGLU/DIATRIZO SOD 30 ML BOTTLE PO ONE (14:10)
[2023-03-27] MEDS: iohexoL-300 100 ML VIAL IVP ONE (14:10)
--- NOTE | 2023-03-27 15:44 | CT Report ---
PROCEDURE: Abdomen/Pelvis W INDICATIONS: DAWOOD HEMATURIA CONTRAST: 100ml omni 300 TECHNIQUE: After the administration of intravenous contrast, a CT scan of the abdomen and pelvis was performed. Images were recorded and evaluated at appropriate window settings. Reformats: coronal and sagittal. F or radiation dose reduction, the following was used: automated exposure control, adjustment of mA and /or kV according to patient size. COMPARISON: CT abdomen pelvis 09/12/2020 FINDINGS: Image quality: Excellent. Lung bases and heart: Mild cardiomegaly. Lung bases are clear. Liver: Hepatic steatosis. Gallbladder and biliary tree: No radiopaque stones or wall thickening. No biliary dilation. Spleen: No splenomegaly. Pancreas: No pancreatic ductal dilation. Adrenals: No adrenal nodule. Kidneys and ureters: Stable appearance of peripheral calcified cystic lesion arising from the inferio r anterior pole of the right kidney. Hyperdense partially exophytic cyst arising from the inferior po le of the left kidney measuring 3.3 cm, previously 2.6, likely a proteinaceous or hemorrhagic cyst. Bowel and peritoneum: No bowel distension. No pathologic free fluid. Lymph nodes: No central or retroperitoneal adenopathy. Vessels: No infrarenal aortic aneurysm. Atherosclerotic vascular calcifications. PELVIS Reproductive organs: Unremarkable. Bladder: No abnormal wall thickening, accounting for underdistention. Pelvic lymph nodes: No pelvic adenopathy by size criteria. Bones: No aggressive osseous abnormality. Degenerative changes of the spine. Levocurvature of the spi ne. Decreased osseous mineralization. Other: No significant ventral or inguinal hernia. IMPRESSION: 1.No renal stones or hydronephrosis. No cause for patient's symptoms. 2.Redemonstration of peripherally calcified cystic lesion of the right kidney, stable in appearance c ompared to prior. 3.Increased size of hyperdense cyst within the inferior pole the left kidney measuring 3.3 cm, previo us 2.6 cm, likely proteinaceous or hemorrhagic cyst. Given increase in size, consider ultrasound foll ow-up in 3-6 months. Reviewed by: Tony Herman MD on 03/27/2023 3:43 PM PST Approved by: Tony Herman MD on 03/27/2023 3:43 PM PST Station ID: [id number]
== END 2023-03-27 11:44 | disposition home or self-care (01) ==
LOC: LAB 11:43
PROVIDERS: ATTEND Family Medicine
DX: R31.0 Gross hematuria (principal); N28.1 Cyst of kidney, acquired
CPT/HCPCS: 36415; 74177; 82565; Q9963; Q9967

== ENCOUNTER 2023-07-14 11:44 | Outpatient (CLI) | payer MEDICARE, BC ==
[2023-07-14 17:51] LABS: BASOPHILS # (AUTO) 0.1 10^3/uL (0.0-0.1); BASOPHILS % (AUTO) 1.3 %; EOSINOPHILS # (AUTO) 0.1 10^3/uL (0.0-0.7); EOSINOPHILS % (AUTO) 1.3 %; HCT - HEMATOCRIT 43.9 % (37.0-47.0); HGB - HEMOGLOBIN 13.4 g/dL (12.0-16.0); LYMPHOCYTES # (AUTO) 1.4 10^3/uL (1.5-3.5); MEAN CORPUSCULAR HEMOGLOBIN 29.8 pg (27.0-31.0); MEAN CORPUSCULAR HGB CONC 30.5 g/dL (32.0-36.0); MEAN CORPUSCULAR VOLUME 97.8 fL (81.0-99.0); MEAN PLATELET VOLUME 11.5 fL (7.9-10.8); MONOCYTES # (AUTO) 0.3 10^3/uL (0.0-1.0); MONOCYTES % (AUTO) 6.5 %; NEUTROPHILS # (AUTO) 2.8 10^3/uL (1.5-6.6); NEUTROPHILS % (AUTO) 60.9 %; PLT - PLATELET COUNT 206 10^3/uL (130-450); RED BLOOD COUNT 4.49 10^6/uL (4.20-5.40); RED CELL DISTRIBUTION WIDTH 12.3 % (12.0-15.0); WHITE BLOOD COUNT 4.6 x10^3/uL (4.8-10.8)
[2023-07-14 18:21] LABS: ALBUMIN 4.4 g/dL (3.2-5.5); ALBUMIN/GLOBULIN RATIO 1.4 (1.0-2.2); ALKALINE PHOSPHATASE 55 IU/L (42-121); ALT ALANINE AMINOTRANSFERASE 10 IU/L (10-60); AST ASPARTATE AMINOTRANSFERASE 16 IU/L (10-42); BILIRUBIN,TOTAL 1.1 mg/dL (0.2-1.0); BUN - BLOOD UREA NITROGEN 17 mg/dL (6-20); CALCIUM 9.9 mg/dL (8.5-10.3); CARBON DIOXIDE - CO2 31 mmol/L (21-32); CHLORIDE 104 mmol/L (101-111); CHOL/HDL RATIO 2.4 (<4.4); CHOLESTEROL 181 mg/dL; CREATININE 0.6 mg/dL (0.6-1.3); GFR - MDRD 96 (>89); GLUCOSE 93 mg/dL (74-104); HDL CHOLESTEROL 77 mg/dL; LDL CHOLESTEROL,CALCULATED 87 mg/dL; LDL/HDL RATIO 1.1 (<4.4); SODIUM 141 mmol/L (135-145); TOTAL PROTEIN 7.5 g/dL (6.4-8.9); TRIGLYCERIDES 86 mg/dL (48-352); VLDL CHOLESTEROL 17 mg/dL
[2023-07-14 18:28] LABS: THYROID STIMULATING HORMONE 0.99 uIU/mL (0.34-5.60)
== END 2023-07-14 11:45 | disposition home or self-care (01) ==
LOC: LAB.N 11:44
PROVIDERS: ATTEND Physician Assistant
DX: I10 Essential (primary) hypertension (principal); E78.5 Hyperlipidemia, unspecified
CPT/HCPCS: 36415; 80053; 80061; 83721; 84443; 85025